=== PATIENT | male | born 1955 | race Caucasian/White ===

== ENCOUNTER 2020-08-13 14:36 | Emergency (ER) | payer MEDICARE, SELFPAY ==
[2020-08-13 14:38] VITALS: BP 133/89; PULSE 104; RESP 15; TEMP 36.5; O2SAT 96; BMI 23.4
--- NOTE | 2020-08-13 14:48 | CT_ITS ---
STUDY: CT BRAIN WITHOUT CONTRAST REASON FOR EXAM: Male, 65 years old. Head trauma and pain RADIATION DOSAGE (If Supplied By Facility): CTDIvol = ( 44.99 ) mGy, DLP = ( 846.73 ) mGycm TECHNIQUE: Transaxial CT imaging of the brain was performed without administration of intravenous contrast material. Individualized dose optimization techniques were used for this CT. COMPARISON: No relevant priors. FINDINGS: Normal soft tissue structures. Normal calvarium. Normal size ventricles and extra-axial spaces for the patient''s age. Nonspecific foci of low-attenuation periventricular and subcortical white matter likely related with chronic small vessel disease. There is no intracranial hemorrhage. There are no findings of an acute ischemic infarction. Normal visualized paranasal sinuses. CT/Brain/Head without Contrast IMPRESSION: No acute intracranial hemorrhage, mass effect or acute large territory infarcts. Electronically Signed: Malick Arriaga MD at 15:39 EST Tel , Service support ,
--- NOTE | 2020-08-13 14:48 | CT_ITS ---
STUDY: CT FACIAL BONES WITHOUT CONTRAST REASON FOR EXAM: Male, 65 years old. FALL HITTING LEFT EYE -- NECK and amp; JAW PAIN RADIATION DOSAGE (If Supplied By Facility): CTDIvol = ( 29.38 ) mGy, DLP = ( 569.49 ) mGycm TECHNIQUE: The patient was scanned in a multi detector CT scanner. Sagittal and coronal images were reconstructed. Individualized dose optimization techniques were used for this CT. COMPARISON: None. FINDINGS: Mandible is intact. Temporal mandible joints appear intact. The zygomas are intact. Fracture deformity of the left medial orbital wall seen. No evidence for orbital hematoma. The globes are intact. No evidence for nasal bone fractures. Fracture deformity of the left orbital floor also seen. The inferior rectus muscle is intact. Partial opacification of the ethmoid air cells. Maxillary sinus rodriguez are intact. IMPRESSION: Left sided medial orbital wall and orbital floor blowout fractures. No evidence for orbital hematoma. No evidence for globe injury. Electronically Signed: Malick Arriaga MD at 15:48 EST Tel , Service support , CT/Sinus/Facial Bone
--- NOTE | 2020-08-13 14:48 | CT_ITS ---
STUDY: CT CERVICAL SPINE WITHOUT CONTRAST REASON FOR EXAM: Male, 65 years old. FALL HITTING LEFT EYE -- NECK and amp; JAW PAIN RADIATION DOSAGE (If Supplied By Facility): CTDIvol = ( 18.57 ) mGy, DLP = ( 327.99 ) mGycm TECHNIQUE: High resolution transaxial imaging was performed without contrast material. Sagittal and coronal images were reconstructed. Individualized dose optimization techniques were used for this CT. COMPARISON: None FINDINGS: Straightening of normal cervical lordotic curvature. Precervical junction appears unremarkable. The facets appear aligned. Spinous processes are intact. Uncovertebral joint and facet joint degenerative changes with multilevel neural foraminal narrowing. Disc space narrowing at C4-C5 and C5-C6 and C6-C7 levels with endplate degenerative changes and vacuum phenomena. Anterior and posterior osteophytic spurring. C1 arch is intact. Occipital condyles are within normal limits. Central canal stenosis at C5-C6 level with disc osteophyte IMPRESSION: No evidence for acute cervical spine fractures. Electronically Signed: Malick Arriaga MD at 15:46 EST Tel , Service support , CT/Spine Cervical without Contras
--- NOTE | 2020-08-13 14:49 | ED.VIS.GEN ---
History of Present Illness Chief Complaint: Fall Informant: Patient Onset: Today Current Severity: Mild Maximum Severity: Mild Narrative: Patient presents after a fall at home. He was shoveling his driveway of snow when he slipped and fell. He has a laceration just above the left eye. He states he does have neck pain and some jaw pain. He states his daughter thought he was answering questions slightly slower than normal. Patient denies loss of consciousness. No vomiting or vision change. He is not currently on an anticoagulant. His last tetanus shot was less than 5 years ago. Past Medical History - Allergies and Home Meds Allergies/Adverse Reactions: Allergies No Known Allergies Allergy (Verified 08/13/20 14:40) Lives: Spouse/ Significant Other Smoking Status: Never smoker Review of Systems General: Denies: Chills, Fever Eyes: Denies: Visual changes - bilaterally ENT: Reports: - - Jaw pain. Denies: Bilateral ear pain Cardiovascular: Denies: Chest pain Respiratory: Denies: Dyspnea, Cough Gastrointestinal: Denies: Abdominal pain, Nausea, Vomiting, Diarrhea Musculoskeletal: Reports: Neck pain Skin: Reports: Wounds Neurological: Reports: Headache. Denies: Weakness, Numbness Hematologic: Denies: Easy bruising, Easy bleeding Allergy: Denies: Uticaria Physical Exam Vital Signs/Narrative: Vital Signs Temp Pulse Resp BP Pulse Ox 08/13/20 14:38 97.7 F L 104 H 15 133/89 H 96 Inital Vital Signs reviewed: Yes General: Well nourished, Well developed Head: Normocephalic, - - 2 cm laceration to the lateral portion of the left eyebrow. Bleeding well controlled. Eyes: Perrl, EOMI ENT: Moist mucous membranes Neck: Supple Cardiovascular: Regular rate, Regular rhythm Respiratory: No distress, CTA bilaterally Abdomen: Soft, Nontender, Normal bowel sounds Extremities: Nontender Skin: - - Eyebrow laceration as above. Neurological: Alert, Oriented x3, Normal Strength, Normal Sensation Psychological: Normal affect Diagnostic/Tx/Re-eval Impressions Brain CT 08/13/20 14:48 IMPRESSION: No acute intracranial hemorrhage, mass effect or acute large territory infarcts. Electronically Signed: Malick Arriaga MD at 15:39 EST Tel , Service support , Cervical Spine CT 08/13/20 14:48 IMPRESSION: No evidence for acute cervical spine fractures. Facial/Sinus 08/13/20 14:48 IMPRESSION: Left sided medial orbital wall and orbital floor blowout fractures. No evidence for orbital hematoma. No evidence for globe injury. 08/13/20 14:48 CT Cervical [Spine Cervical without Contras] [CT] Stat CT Facial [Sinus/Facial Bone] [CT] Stat CT Head [Brain/Head without Contrast] [CT] Stat - Medical Decision Making Patient reports his tetanus shot is up-to-date. CT scans are obtained. CT facial bones is read as orbital fracture, however when I presented this to the patient he states that he had a bad fracture to that area 1972. He has no focal pain to this area and it is all felt to be old based on his exam. 2 cc 1% lidocaine are used locally around the laceration. Wound is cleansed and sutured with 6 simple interrupted sutures with 5-0 nylon. Patient tolerated procedure well. Patient will follow up with his PCP or here in 5 days for suture removal. ED Disposition - Plan for ED Patient: Disposition: Home or Assisted Living Diagnosis: Facial laceration Instructions: ED Laceration, Face: Stitches or Tape Referrals: Jarrett Cao MD [STAFF PHYSICIAN] - 5 Days for suture removal
[2020-08-13] MEDS: Lidocaine 1% (20 ml mdv) 20 ML Vial INFILT (16:20)
== END 2020-08-13 16:21 | disposition home or self-care (01) ==
PROVIDERS: Emergency Provider Emergency Medicine
DX: S01.112A Laceration without foreign body of left eyelid and periocular area, initial encounter (principal); W26.9XXA Contact with unspecified sharp object(s), initial encounter; Y93.89 Activity, other specified; Y92.008 Other place in unspecified non-institutional (private) residence as the place of occurrence of the external cause; Y99.8 Other external cause status
CPT/HCPCS: 12011; 70450; 70486; 72125; 99283

== ENCOUNTER 2022-11-24 03:42 | Emergency (ER) | payer MEDICARE, SELFPAY ==
[2022-11-24 03:43] VITALS: BP 160/97; PULSE 87; RESP 16; TEMP 36.4; O2SAT 98; BMI 23.9
--- NOTE | 2022-11-24 03:51 | EKG12_ITS ---
Test Reason : CP Blood Pressure : / mmHG Vent. Rate : 082 BPM Atrial Rate : 082 BPM P-R Int : 152 ms QRS Dur : 094 ms QT Int : 356 ms P-R-T Axes : 061 064 056 degrees QTc Int : 415 ms Normal sinus rhythm Normal ECG Confirmed by EDE BILLINGSLEY, LUCAS ([id number]), legal editor LEX PELLETIER ([id number]) on 11/26/2022 10:32:09 AM Referred By: KELLY Confirmed By:LUCAS MERA MD
--- NOTE | 2022-11-24 03:51 | RAD_ITS ---
INDICATION: chest pain EXAMINATION/TECHNIQUE: X-RAY - XR Chest 1 View COMPARISON: None. Findings: Single frontal view of the chest. LUNG PARENCHYMA: No acute focal airspace disease or mass lesion. PLEURA: No pleural effusion. No pneumothorax. HEART/GREAT VESSELS: Cardiomediastinal silhouette is unremarkable. BONES: Osseous structures are unremarkable for age. RAD/Chest 1 View (Portable) IMPRESSION: Chest with no acute disease. Electronically Signed: Bernard Moran MD at 4:54 EDT ,
[2022-11-24 03:58] LABS: Absolute Lymphocyte Count 3.91 X10^3/uL (0.83-4.51); Absolute Neutrophil Count 3.2 X10^3/uL (2.0-7.7); Basophil# 0.06 X10^3/uL; Basophil% 0.7 % (0-1); Eosinophil# 0.27 X10^3/uL; Eosinophils% 3.3 % (0-5); Hematocrit 42.9 % (40-54); Lymphocyte # 3.91 X10^3/ul (0.83-4.51); Lymphocyte % 47.5 % (19-41); Mean Corp Hgb Conc 32.6 g/dL (32-36); Mean Corpuscular Hgb 29.8 pg (27.0-32.0); Mean Corpuscular Volume 91.3 fL (80-94); Mean Platelet Vol. 9.9 fl (6.2-12.0); Monocyte# 0.79 X10^3/uL; Monocyte% 9.6 % (0-10); NRBC Flagged by Analyzer 0 % (0-5); Neutrophil # 3.18 X10^3/uL (2.7-7.7); Neutrophil % 38.7 % (47-70); Platelet Count 320 K/mm3 (150-450); RBC Distribution Width CV 13.2 % (11.6-14.6); RBC Distribution Width SD 44.9 fl (35.1-43.9); White Blood Count 8.2 K/mm3 (4.4-11.0)
--- NOTE | 2022-11-24 04:04 | EDS_ITS ---
HPI History of Present Illness Chief Complaint: Chest Pain Informant: patient Onset/Context/Timing Onset: Today and Hours Activity at onset: sudden Timing: Intermittent Quality: Positive for Stabbing Location: Substernal Current Severity: Mild Maximum Severity: Mild Worsened By: Breathing; Not Worsened By Exertion, Movement of Arm, Movement of Torso, Eating, Palpation or Coughing Relieved By: Nothing Associated Symptoms: Negative for Nausea, Vomiting, Diaphoresis, Dyspnea, Cough, Fever, Lightheadedness, Acid Reflux or Palpitations Narrative Narrative: Healthy 67-year-old male with history of glaucoma. No cardiac history. States that he woke up tonight with midsternal chest discomfort that felt like something was clot in his chest or esophagus. Increased with deep breathing. No history of cardiac disease nor any DVT or PE. No recent travel surgery or immobilization. No leg pain or swelling. No hemoptysis. No recent exertional chest pain or shortness of breath. Prior Similar Symptoms: No Recent Illness/Hospitalization: No CVD Risk Factors: Negative for Hypertension, Diabetes, Hypercholesterolemia, Family History 1' </=55 or Smoking PE Risk Factors: Negative for Recent Travel/Surgery, Recent Immobilization, Prior DVT or PE, Cancer, OCP + Smoking + >/=35 or - TAD Risk Factors: Negative for Marfan's Syndrome [facility]SH [facility] Medical History Glaucoma Home Medications NK 11/24/22 [History Last Taken Unknown] Allergy/AdvReac Type Severity Reaction Status Date / Time No Known Allergies Allergy Verified 11/24/22 03:49 Social History Smoking Status: Never smoker ROS ROS ED ROS Narrative Pleuritic chest pain tonight only. Review of Systems ROS Unobtainable: Denies due to encephalopathy Constitutional Constitutional ED: Denies chills Eyes Eyes: Reports none ENT ENT ED: Denies ear pain Cardiovascular Cardiovascular: Reports as per HPI and chest pain; Denies palpitations or racing heartbeat Respiratory/Chest Respiratory/Chest: Denies cough, dyspnea or dyspnea on exertion Gastrointestinal Gastrointestinal: Denies abdominal pain or constipation Genitourinary Genitourinary ED: Denies dysuria or hematuria Musculoskeletal Musculoskeletal: Denies arthralgias Integumentary Denies abscess Neurologic Neurologic: Denies headache(s) Psychiatric Psychiatric: Denies anxiety Endocrine Endocrinology: Denies cold intolerance Hematologic/Lymphatic Hematologic/Lymphatic: Denies easy bleeding or easy bruising Allergic/Immunologic Allergic/Immunologic ED: Denies mouth swelling or tongue swelling EXAM Physical Exam Narrative Exam Narrative: 59-year-old male vital signs stable afebrile. Pulse ox 90% on room air no signs hypoxia. HEENT exam unremarkable. Neck nontender no JVD. Lungs clear to auscultation bilaterally. Heart regular rate and rhythm no murmur rate about 85. Chest wall completely nontender. No signs of trauma. No subcu air. Abdomen soft nontender normal bowel sounds no peritoneal signs. Moving all 4 extremities. Calves are nontender without edema or cords. Equal symmetrical radial pulses. Back nontender. Neurologic exam normal. Awake and alert. Const Vital Signs: 11/24/22 03:43 11/24/22 03:47 11/24/22 03:51 Temperature 97.5 F L Temperature Source Temporal Pulse Rate 87 Respiratory Rate 16 Respiratory Effort Normal Non-Labored Respiratory Pattern Normal Blood Pressure 160/97 H Blood Pressure Mean 118 Pulse Ox 98 Oxygen Delivery Method Room Air Room Air 11/24/22 04:42 11/24/22 05:00 11/24/22 06:00 Temperature Temperature Source Pulse Rate 66 60 62 Respiratory Rate 17 18 17 Respiratory Effort Respiratory Pattern Blood Pressure 130/62 H 145/61 H 129/58 H Blood Pressure Mean 84 89 81 Pulse Ox 98 97 98 Oxygen Delivery Method Room Air Room Air Room Air Positive well nourished and well developed; Negative for obese, cachectic, contractures or unkempt General Appearance ED: well developed and NAD; Negative for unkempt, cachectic, contractures or pallor Nutritional Appearance: Negative for cachectic or obese HEENT Reports moist mucous membranes normocephalic and atraumatic; Negative for trauma or tenderness Eyes PERRL and EOMs intact bilaterally General Eye ED: Negative for pale conjunctiva or scleral icterus Neck no lymphadenopathy, supple and no JVD General: Negative for tenderness Chest Wall inspection of chest normal and palpation of chest normal Chest: Negative for tenderness Resp normal respiratory effort and clear to auscultation bilaterally Effort and Inspection: Negative for respiratory distress Auscultation: Negative for rales, rhonchi or wheezes Cardio regular rate, regular rhythm, S1 normal heart sound, S2 normal heart sound and no murmurs Rate: Negative for bradycardia or tachycardic Rhythm: Negative for abnormal rhythm Peripheral Pulses: pulses 2+ throughout GI normal to inspection, nondistended, normoactive bowel sounds, soft to palpation, non-tender, non-distended and no masses Auscultation: Negative for hyperactive bowel sounds Palpation: Negative for splenomegaly Back/Spine no CVA tenderness and no thoracic nor lumbar tenderness General Back: Negative for CVA tenderness Cervical Spine: Negative for cervical spine tenderness Extremity normal to inspection General Extremety ED: Negative for edema, pulses abnormal or tenderness General Extremity: Negative for edema or pulses abnormal Neuro oriented x3 and CN's II-XII intact bilaterally Sensorium / Orientation: awake, alert, oriented to person, oriented to place and oriented to time; Negative for confused, lethargic or stuporous Motor Exam: strength 5/5 throughout Psych mental status grossly normal Appearance: Negative for unkempt Attitude: No agitated Mood & Affect: Negative for depressed, anxious or tearful Skin no rashes or lesions noted and no wounds General Skin Exam: Negative for jaundice or pallor Rashes: No rashes noted Trauma: Negative for abrasion or laceration Heart Score History: Slightly/Non-Suspicious ECG: Normal Age: >/= 65 years Risk Factors: No Risk Factors Troponin: </= Normal Limit Score: 2 MDM MDM MDM Narrative Medical decision making narrative: 67-year-old male with atypical pleuritic chest pain does not sound cardiac. Is not exertional. He is not short of breath. He is never had a DVT or PE. No physical findings of DVT. He has no risk factors he is in no travel surgery immobilization. He had a recent URI a week ago this could be pleurisy. Could be pericarditis I do not hear friction rub nor does EKG shows signs of pericarditis. Will undergo cardiac and PE work-up. It does not sound GI and it does not change with swallowing or eating. Repeat exam patient is doing well at 4:56 AM. I asked discussed with him ordering a CTA of his chest due to his pleuritic pain and elevated D-dimer. Repeat exam patient doing well at 6:27 AM. Chest pain resolved. We went over all his test results. Both troponins were normal and 4. CTA was negative. Will be discharged, chest pain uncertain etiology. Follow-up with primary care physician. History & Record Review Discussion w/independent historian: Patient Additional record(s) reviewed:: Prior inpatient record, Prior outpatient record, Prior ED visit and Prior labs Lab Data Attestation: I reviewed the patient's lab results. Lab results narrative: CBC normal. White count 8. H&H 14 and 42. Platelets 320. Chemistries unremarkable gap of 3 normal BUN and creatinine. Glucose 108. Troponin 4. D-dimer is slightly elevated 0.85. Even corrected for age is elevated. A CTA of the chest to be obtained. Showed no PE or acute cause of his chest discomfort. Second troponin was normal also and was 4. Labs: Laboratory Results - last 24 hr 11/24/22 11/24/22 11/24/22 03:45 03:45 03:45 WBC 8.2 RBC 4.70 Hgb 14.0 Hct 42.9 MCV 91.3 MCH 29.8 MCHC 32.6 RDW Std Deviation 44.9 H RDW Coeff of Shant 13.2 Plt Count 320 MPV 9.9 Immature Gran % (Auto) 0.200 Neut % (Auto) 38.7 L Lymph % (Auto) 47.5 H Ingham % (Auto) 9.6 Eos % (Auto) 3.3 Baso % (Auto) 0.7 Absolute Neuts (auto) 3.2 Absolute Lymphs (auto) 3.91 Nucleated RBC % 0 D-Dimer Quant (PE/DVT) 0.85 H* Sodium 142 Potassium 4.0 Chloride 111 H Carbon Dioxide 28.0 Anion Gap 3 L BUN 17 Creatinine 1.07 Estim Creat Clear Calc 63.93 Est GFR (MDRD) Af Amer 88 Est GFR (MDRD) Non-Af 73 BUN/Creatinine Ratio 15.9 Glucose 108 H Calcium 8.8 Troponin I High Sens 4 11/24/22 06:00 WBC RBC Hgb Hct MCV MCH MCHC RDW Std Deviation RDW Coeff of Shant Plt Count MPV Immature Gran % (Auto) Neut % (Auto) Lymph % (Auto) Ingham % (Auto) Eos % (Auto) Baso % (Auto) Absolute Neuts (auto) Absolute Lymphs (auto) Nucleated RBC % D-Dimer Quant (PE/DVT) Sodium Potassium Chloride Carbon Dioxide Anion Gap BUN Creatinine Estim Creat Clear Calc Est GFR (MDRD) Af Amer Est GFR (MDRD) Non-Af BUN/Creatinine Ratio Glucose Calcium Troponin I High Sens 4 Radiography Chest X-Ray - ED: 1 View, Read by ED Physician, Heart, Lungs, Mediastinum, Bony Structures, No Acute Disease and Chronic Changes Diagnostic Testing: Clinical Impression(s) from Imaging Studies Chest X-Ray 11/24/22 03:51 IMPRESSION: Chest with no acute disease. Electronically Signed: Bernard Moran MD at 4:54 EDT , Chest CTA 11/24/22 05:11 IMPRESSION: No pulmonary embolus or acute aortic abnormality. No acute abnormality of the chest identified. Electronically Signed: Bernard Moran MD at 6:23 EDT , Chest x-ray, portable, single view, interpreted by myself shows no acute abnormality. Normal cardiac silhouette mediastinum. No infiltrates but to agrees. Rhythm Strip Rhythm Strip: Sinus Rhythm Rate: 82 Ectopy: None EKG Initial EKG: Attestation: I personally reviewed and interpreted this EKG as follows: Interpretation: Sinus Rhythm and No Acute Injury Pattern Comments: Normal sinus rhythm rate 82 no acute signs of NE or ischemia. No [id number]. Discharge Plan Triage Chief Complaint: Chest Pain ED Provider: Sumeet Bernal Dx/Rx/DC Orders Clinical Impression: Chest pain Instructions: ED Chest Pain, Uncertain Cause Prescriptions: No Action NK Primary Care Provider: Care Physician,No Primary Referrals: Vivian Hairston MD [Med Staff - C Programmer] - As soon as possible Care Physician,No Primary [Primary Care Provider] - Activity Restrictions/Additional Instructions: Chest pain of uncertain cause. Your exam is normal. Your labs CAT scan, chest x-ray and EKG were unremarkable I do not have a specific cause for your chest discomfort. There is no blood clot. You have not had a heart attack. This does not sound cardiac. Follow-up with a primary care physician return if you are feeling worse. Disposition Disposition: Home, Self Care
[2022-11-24 04:18] LABS: Anion Gap 3 (5-15); BUN 17 mg/dL (7-18); BUN/Creat Ratio 15.9 RATIO (10-20); Calcium,Total 8.8 mg/dL (8.5-10.1); Chloride 111 mmol/L (98-107); Creatinine, Serum 1.07 mg/dL (0.70-1.30); EST Glomerular Filtration Rate 73 mL/min (>60); Est Glom Filt Rate - Afr Amer 88 mL/min (>60); Estimated Creatinine Clearance 63.93 ml/min; Glucose 108 mg/dL (74-106); Sodium Level 142 mmol/L (136-145); Troponin-I HS (w/2H Reflex) 4 pg/mL (3.0-78.0)
[2022-11-24 04:34] LABS: D-Dimer Quantitative (DVT/PE) 0.85 FEU/ug/m (0.27-0.49)
[2022-11-24 04:42] VITALS: BP 130/62; PULSE 66; RESP 17; O2SAT 98
[2022-11-24 05:00] VITALS: BP 145/61; PULSE 60; RESP 18; O2SAT 97
--- NOTE | 2022-11-24 05:11 | CT_ITS ---
INDICATION: pleuritic cp with elevated d-dimer EXAMINATION: CT CHEST WITH CONTRAST - CTA Chest WO/W Contrast Injection A radiation dose optimization technique was used for this scan. COMPARISON: Chest radiograph same day. FINDINGS: Contrast enhanced serial CTA axial images through the chest with coronal and sagittal reformatted series. Additional dedicated coronal and sagittal MIP reformatted series provided as well. IV Contrast dosage and agent: 99 cc [id number] IV. MEDIASTINUM: No acute thoracic aortic abnormality. No pulmonary artery filling defects. Mediastinum is otherwise unremarkable. LUNG PARENCHYMA: No acute pulmonary parenchymal abnormality. PLEURA: No pleural effusion. No pneumothorax. BONES: Osseous structures are unremarkable for age. UPPER ABDOMEN: Tiny hypoattenuating hepatic lesions, too small to characterize further. CT/CTA Chest W/WO Contrast IMPRESSION: No pulmonary embolus or acute aortic abnormality. No acute abnormality of the chest identified. Electronically Signed: Bernard Moran MD at 6:23 EDT ,
[2022-11-24 05:55] LABS: Reflex Troponin-HS? (from REC) Y
[2022-11-24 06:00] VITALS: BP 129/58; PULSE 62; RESP 17; O2SAT 98
[2022-11-24 06:25] LABS: Troponin-I HS 4 pg/mL (3.0-78.0)
== END 2022-11-24 07:02 | disposition home or self-care (01) ==
PROVIDERS: Emergency Provider Emergency Medicine; Visit Provider Emergency Medicine
DX: R07.89 Other chest pain (principal)
CPT/HCPCS: 71045; 71275; 80048; 84484; 85025; 85379; 93005; 99283; Q9967; A4216

== ENCOUNTER → 2023-07-29 | Outpatient (CLI) | payer MEDICARE, SELFPAY ==
--- OUTSIDE RECORDS SUMMARY | 2023-07-29 19:54 | XMS RPT_ITS ---
Comprehensive CCD (C-CDA v2.1) Created on: July 29, 2023 Current Outpatient Medications Medication Sig tafluprost, PF, (ZIOPTAN) 0.0015 % ophthalmic solution dropperette Use 1 Drop in both eyes daily at bedtime. No current facility-administered medications for this visit. ALLERGIES: Patient has no known allergies. PERSONAL HISTORY: SOCIAL HISTORY Social History Tobacco Use Smoking status: Never Smokeless tobacco: Never Vaping Use Vaping Use: Never used Substance Use Topics Alcohol use: Yes Alcohol/week: 5.0 standard drinks of alcohol Types: 5 Cans of beer per week Drug use: Never FAMILY HISTORY: FAMILY HISTORY FAMILY HISTORY Problem Relation Age of Onset Diabetes Mother Heart Attack Mother Liver Cancer Father Alcohol abuse Father Skin Cancer Sister Kidney stones Brother REVIEW OF SYMPTOMS: The review of systems data was entered by the nurse and reviewed by tx Nursing Notes: Isadora Sanches RN 03/25/2023 8:30 AM Signed REVIEW OF SYSTEMS: General: The patient denies fatigue, denies weight loss, denies weight gain, denies feeling hot, and denies feelings of cold. Eyes: The patient NOTES glaucoma, NOTES eye injury/surgery, does not wear glasses or contacts. Ear/Nose/Throat: The patient denies allergies, denies hayfever, denies ear infections, and denies bloody noses. Cardiovascular: The patient NOTES chest pain, denies heart disease, denies high blood pressure,denies cardiac stent, denies prior heart attack, denies irregular heart beat, denies high cholesterol, denies poor circulation, denies heart failure, other cardiac issues, denies claudication, denies cold feet, denies peripheral arterial stent. Respiratory: The patient denies tuberculosis, denies pneumonia, denies frequent cough, denies pulmonary embolism, denies shortness of breath, and denies coughing up blood. Gastrointestinal: The patient denies difficulty swallowing, denies acid reflux, denies ulcers, denies vomiting, denies jaundice/hepatitis, denies gallbladder problems, denies black or tarry stools, denies hemorrhoids, denies bleeding from rectum, denies diverticulitis, denies constipation, denies diarrhea, denies loss of stool control, and denies hernias. Kidney/Bladder: The patient denies kidney stones, denies urine infections, and denies bloody urine. Skin: The patient denies a history of skin cancer, denies bleeding/changing moles, and denies a history of skin rash. Neurologic: The patient denies a history of epilepsy/convulsions, denies headaches, denies head/spinal injuries, and denies stroke/TIA. Psychiatric: The patient denies psychiatric medications, denies depression, and denies voices, denies substance abuse. Endocrine: The patient denies thyroid disorders, denies diabetes, and denies hormonal problems. Hematologic: The patient denies a history of bruising, denies bleeding, and denies anemia, denies blood clots. Infections: The patient denies a history of measles and mumps, denies rheumatic fever, and denies sexually transmitted diseases. Musculoskeletal: The patient denies back pain/injury, denies back problems, denies sciatica, denies knee/foot trouble, denies arthritis, or denies gout. When was patient's last Mammogram screening? N/A Last Colonoscopy: 2012 Isadora Sanches RN PHYSICAL EXAMINATION: General: The patient is 68 year old male, well nourished, well hydrated in no acute distress. The patient is oriented to time, place, and person. VITALS: Blood pressure 122/64, pulse 70, temperature 36.5 C (97.7 F), height 172.7 cm (5' 8 ), weight 69.6 kg (153 lb 6.4 oz), SpO2 99 %. Body mass index is 23.32 kg/m . HEENT: Normal cephalic, ataumatic, pupils are equally round, sclera are anicteric, mucous membranes are moist, oropharynx is clear. Neck has no masses, asymmetry or lymphadenopathy. Respiratory: Clear to auscultation and percussion. Normal respiratory excursion and pattern. Cardiac: Examination is regular rate and rhythm. Normal S1/S2 Abdominal exam: Soft, nontender, with no palpable masses. No hepatosplenomegaly. No palpable hernias. Extremities: no clubbing, cyanosis or edema. No adenopathy. LABORATORY VALUES: As Noted RADIOLOGIC STUDIES: As Noted Assessment IMPRESSION: history of colon polyps, encounter for surveillance colonoscopy PLAN: I have reviewed my findings with the surgeon. Will plan for lower endoscopy. We discussed the risks and benefits of the planned endoscopy. I have informed the patient that complications can occur including failure to complete the endoscopy and perforation. The patient had the opportunity to ask questions concerning the planned endoscopy. My staff has also explained the procedure to the patient in understandable terms and has given the patient printed material concerning the procedure. The patient freely consents to surgery. I plan to use Miralax bowel preparation Patient to complete stress test and have this reviewed by ordering provider prior to endoscopy Patient verbalized understanding of all above and agreed with the plan. Diagnoses: (Z12.11) Encounter for screening for malignant neoplasm of colon (primary encounter diagnosis) (Z86.010) History of colon polyps Consultation requested by Delma Brumfield CNP for an opinion regarding surveillance colonoscopy. My final recommendations will be communicated back to the requesting physician by way of shared Medical record or letter to requesting physician via US mail. Joceline Corbin PA-C UPDATED HISTORY AND PHYSICAL EXAMINATION SERVICE DATE: 05/22/2023 SERVICE TIME: 9:17 AM PHYSICAL EXAM MUST BE COMPLETED ON ADMISSION The History and Physical (completed in the past 30 days) has been reviewed and the patient has been examined. The contents accurately reflect the patient's condition with the following additions or revisions since the H&P was completed. Examination indicates no changes. This H&P can be found in the attached. SIGNATURE: Davon Morgan III, MD PATIENT NAME: Lexi Adhikari DATE: May 22, 2023 TIME: 9:16 AM documented in this encounter [facility] 05-20-2023 Note HNO ID: [id number] Author: Jhon Pereira Service: ? Author Type: ? Type: Progress Notes Filed: 05/26/2023 5:04 AM Note Text: May 20, 2023 An order has been received for PAP titration study from Delma North APRN.arpita VARGHESE. [facility] Staff. Visit prep complete. Comments :No The sleep study is scheduled for 05/25. Insurance: Payor: [facility] MEDICARE / Plan: [facility] MEDICARE HMO / Product Type: HMO / Payer/Plan Subscr Sex Relation Sub. Ins. ID Effective Group Num 1. [facility] AARP MEDI* LEXI ADHIKARI 1955 Male Self [id number] 07/14/22 [address] [address] Jhon Pereira [facility] 04-21-2023 Note HNO ID: [id number] Author: Parul Whitley RT(R) Service: Nuclear Medicine Author Type: Technologist Type: Progress Notes Filed: 04/21/2023 1:35 PM Note Text: RADIOLOGY SERVICE PROGRESS NOTE SERVICE DATE: 04/21/2023 SERVICE TIME: 07:27 AM PATIENT IDENTITY VERIFICATION COMPLETED USING TWO (2) STANDARD IDENTIFIERS: Name and Date of confirmed by patient verbally FALL SCREENING: Has the patient had 2 falls in the last year or 1 fall with injury or currently using an Ambulatory Assistive Device (Walker, Cane, Wheelchair, Crutches, etc.)? No PATIENT GENDER DATA: .male ALLERGIES: Reviewed and unchanged MEDICATIONS REVIEWED: No PATIENT RELEVANT IMPLANT DATA REVIEWED: Not Applicable CREATININE: Creatinine Date Value Ref Range Status 03/18/2023 1.12 0.73 - 1.22 mg/dL Final Estimated Glomerular Filtration Rate Date Value Ref Range Status 03/18/2023 71 >=60 mL/min/1.73m? Final Comment: Estimated Glomerular Filtration Rate (eGFR) is calculated using the 2020 CKD-EPI creatinine equation. This equation utilizes serum creatinine, sex, and age as parameters. The creatinine assay has traceable calibration to isotope dilution-mass spectrometry. Refer to KDIGO guidelines for clinical interpretation. In patients with unstable renal function, e.g. those with acute kidney injury, the eGFR may not accurately reflect actual GFR. P.O.C.T. RESULTS: N/A April 21, [address] PERFORMED: No IV SITE: Ambulatory: A peripheral IV was started in the Right hand with a Angio cath: 24 gauge. POST EXAM PIV STATUS: Discontinued PROCEDURE TYPE: NM Stress: 8.4 mCi [id number] was administered IV for Rest Imaging at 07:39 by Parul Whitley. 26.4 mCi [id number] was administered IV for Stress Imaging at 09:05 by Parul Whitley. ADMINISTRATION TIME: PATIENT DISCHARGED TO: Ambulatory patient, left [place] department area. A Diagnostic radioactive procedure has taken place, with no further precautions necessary other than routine body substance precautions. More information regarding radiation safety can be found using this link: [email or web address] [email or web address] SIGNATURE: RT Eliza(R) PATIENT NAME: Lexi Adhikari DATE: April 21, 2023 TIME: 10:40 AM PAGER/CONTACT #: [facility] 04-21-2023 History of Presen t illness Narrative RADIOLOGY SERVICE PROGRESS NOTE SERVICE DATE: 04/21/2023 SERVICE TIME: 07:27 AM PATIENT IDENTITY VERIFICATION COMPLETED USING TWO (2) STANDARD IDENTIFIERS: Name and Date of confirmed by patient verbally FALL SCREENING: Has the patient had 2 falls in the last year or 1 fall with injury or currently using an Ambulatory Assistive Device (Walker, Cane, Wheelchair, Crutches, etc.)? No PATIENT GENDER DATA: .male ALLERGIES: Reviewed and unchanged MEDICATIONS REVIEWED: No PATIENT RELEVANT IMPLANT DATA REVIEWED: Not Applicable CREATININE: Creatinine Date Value Ref Range Status 03/18/2023 1.12 0.73 - 1.22 mg/dL Final Estimated Glomerular Filtration Rate Date Value Ref Range Status 03/18/2023 71 >=60 mL/min/1.73m Final Comment: Estimated Glomerular Filtration Rate (eGFR) is calculated using the 2020 CKD-EPI creatinine equation. This equation utilizes serum creatinine, sex, and age as parameters. The creatinine assay has traceable calibration to isotope dilution-mass spectrometry. Refer to KDIGO guidelines for clinical interpretation. In patients with unstable renal function, e.g. those with acute kidney injury, the eGFR may not accurately reflect actual GFR. P.O.C.T. RESULTS: N/A April 21, [address] PERFORMED: No IV SITE: Ambulatory: A peripheral IV was started in the Right hand with a Angio cath: 24 gauge. POST EXAM PIV STATUS: Discontinued PROCEDURE TYPE: NM Stress: 8.4 mCi [id number] was administered IV for Rest Imaging at 07:39 by Parul Whitley. 26.4 mCi [id number]-Qlowdhq was administered IV for Stress Imaging at 09:05 by Parul Whitley. ADMINISTRATION TIME: PATIENT DISCHARGED TO: Ambulatory patient, left [place] department area. A Diagnostic radioactive procedure has taken place, with no further precautions necessary other than routine body substance precautions. More information regarding radiation safety can be found using this link: [email or web address]%20N uclear%[email or web address] df SIGNATURE: RT Eliza(Halie) PATIENT NAME: Lexi Adhikari DATE: April 21, 2023 TIME: 10:40 AM PAGER/CONTACT #: documented in this encounter [facility] 04-02-2023 Note HNO ID: [id number] Author: Vera Bolaños Service: ? Author Type: ? Type: Progress Notes Filed: 04/02/2023 4:55 PM Note Text: Sleep Study Check-In Documentation Date: April 02, 2023 Name: Lexi Adhikari Comments: HST was returned in working order with all sleep questionnaires Vera Bolaños [facility] 04-01-2023 Note HNO ID: [id number] Author: Dulce Kincaid PA-C Service: ? Author Type: Physician Travel Ticketing Reviewer Type: Progress Notes Filed: 04/03/2023 7:23 AM Note Text: NEW PATIENT ADAMA in Dermatology: Visit date not found CC: This patient is a 68 year old male. HISTORY OF PRESENT ILLNESS: CHIEF COMPLAINT #1: FBSE. Skin growth described as mole Location(s): On the: below axilla ( left side ) Duration: 7 years Description/Symptoms: Denies pain Denies itch Denies change in size Denies bleeding None reported Worsening factors: None reported Improving factors: None reported Treatment(s): Current: None reported Past: None reported CHIEF COMPLAINT #2: skin growths ( moles ) Location(s): On the: head ( forehead ) Duration: 7 years Description/Symptoms: None reported Worsening factors: None reported Improving factors: None reported Treatment(s): Current: None reported Past: None reported -Pt has no other concerns at this time. PERTINENT HISTORY/SOCIAL/MEDS/ALLERGY: -Personal history of skin cancer or atypical nevi: No -History of blistering sunburns: No -Family history of skin cancer: Yes, Melanoma (Father/Sister ) -History of organ transplant/immunosuppression: No -History of joint replacements: No -Pacemaker or defibrillator: No -Need for antibiotics before dental procedures: No SOC: Social History Tobacco Use Smoking status: Never Smokeless tobacco: Never Vaping Use Vaping Use: Never used Substance Use Topics Alcohol use: Yes Alcohol/week: 5.0 standard drinks of alcohol Types: 5 Cans of beer per week Drug use: Never MEDS: Current outpatient prescriptions: Current Outpatient Medications on File Prior to Visit Medication Sig tafluprost, PF, (ZIOPTAN) 0.0015 % ophthalmic solution dropperette Use 1 Drop in both eyes daily at bedtime. No current facility-administered medications on file prior to visit. ALLERGY: ALLERGIES No Known Allergies REVIEW OF SYSTEMS: Skin as above. Patient feels well and denies any recent fevers, chills, or nightsweats. There were no vitals taken for this visit. PHYSICAL EXAM: Patient is in NAD. Alert and oriented x 3. A skin exam performed of the scalp, face, ears, neck, chest, back, abdomen, bilateral upper extremities, bilateral lower extremities, buttocks, hands, feet, fingernails, toenails and hair, underwear left on per pt preference is significant for: -Multiple homogeneously colored uniform brown macules and papules throughout, consistent with clinically benign appearing NEVI -Multiple red/purple vascular papules throughout, consistent with ANGIOMAS -Scattered reticulated brown macules on sun exposed areas, consistent with LENTIGINES -Brown waxy stuck on appearing papule(s) throughout, consistent with SEBORRHEIC KERATOSES -Excoriated, scaly papule, consistent with INFLAMED/IRRITATED SEBORRHEIC KERATOSIS involving the left forearm, right forearm -BIOPSY: A) 1.0 x 0.6 CM brown patch with irregular borders r/o atypia -0.5 cm dark brown macule of the left upper arm regular appearing, uniform, evenly pigmented and symmetrical throughout (monitor) -Diffused scatted actinic damage of the face and scalp ASSESSMENT AND PLAN: #Inflamed Seborrheic Keratosis, Skin Pruritus -Discussed etiology of condition, natural course, management and treatment options -Recommend treatment with liquid nitrogen -Due to associated itch/discomfort, offered LN2 destruction - patient opts to proceed. Plan: -Treatment with cryosurgery -Discussed side effects including redness, swelling, crusting, and discoloration after treatment, wound care with soap/water and Vaseline. -Follow up sooner than scheduled interval if not resolved PROCEDURE: Cryosurgery of non-malignant lesion(s) Risks, benefits, alternatives and personnel required for cryosurgery reviewed with patient. Patient verbalizes understanding and wishes to proceed. Cryosurgery performed with Liquid Nitrogen via cryostat spray gun to ISK. Patient tolerated well. Wound care instructions provided, patient verbalizes understanding. LOCATION: left forearm, right forearm NUMBER TREATED: 2 #Actinic Keratosis, Actinic Damage -Discussed etiology and possibility of transformation to SCC. -Discussed treatment options and the risks and benefits of each including LN2, field treatment with 5-fluorouracil (efudex), and photodynamic therapy; patient opts for PDT. Plan: -Photodynamic therapy for -Discussed incubation time and need to avoid sun x 72 hours after treatment. -History of oral herpes simplex: No Orders: -PHOTODYNAMIC THERAPY -Aminolevulinic Acid HCl 20 % soln 1 Each Dulce Kincaid PA-C #Neoplasm of unspecified behavior of bone, soft tissue, and skin -Recommend shave biopsy today to establish and confirm diagnosis UNIVERSAL PROTOCOL / SAFETY CHECKLIST Procedure to be Performed: Shave Biopsy x 1 Sign In: A Moment of CARE was c (more content not included)... [facility] 04-01-2023 Instructions Dulce Kincaid PA-C - 04/01/2023 8:49 AM EDT Images from the original note were not included. Skin Cancer Skin cancer is treatable and preventable with early detection and regular screenings. What to look for Checking your skin means taking note of all the spots on your body, from moles to freckles to age spots. Skin cancer can develop anywhere on the skin and is one of the few cancers you can usually see on your skin. Use the ABCDEs of Melanoma as a guidance to help assess for changes and higher risk lesions A = Asymmetry, one half is unlike the other half B = Border, an irregular, scalloped or poorly defined border C = Color, is varied from one area to another; has shades of sparks, brown, or black, or is sometimes white, red, or blue D = Diameter, Melanomas are usually greater than 6 mm (size of a pencil Eraser) but can be smaller E = Evolving, A mole or skin lesion that is changing in size, shape, or color Basal cell carcinoma and squamous cell carcinoma can look similar to pimple-like lesions, raised red bumps, or may appear as red, dry, or scaly patches. Notify your provider if such an area does not heal for several weeks or starts to itch, bleed, or become painful Use SPF 30+ for sun protection with, wide brim hats, sun glasses, protective clothing, and seeking shade during the peek hours of sun 10am-4pm. Reapply sunscreen every 1-2 hours. Choose broad-spectrum sunscreens. Get Vitamin D safely through a healthy diet and vitamin supplements. The [place] [employer] recommend 1000 international unit(s) of supplemental Vitamin D for adults who practice daily sun protection. Foods rich in vitamin D include salmon, tuna, vitamin D fortified milk or orange juice, and mackerel PHOTODYNAMIC THERAPY FOR ACTINIC KERATOSES Photodynamic Therapy (PDT, Brendon Light Therapy) Photodynamic Therapy (PDT) is indicated for the treatment of minimally to moderately thick actinic keratosis of the face or scalp. Actinic keratoses (AKs) are rough-textured, dry, scaly patches on the skin that can lead to skin cancer. It is important to treat AKs because there is no way to tell when or which lesions will progress to squamous cell carcinoma (SCC), the second most common form of skin cancer. So, now's the time to manage your damage! PDT, a two-part treatment, is unique because it uses a light activated drug therapy to destroy AKs. How does it work? Levulan Kerastick Topical Solution is applied to the AKs. The solution is then absorbed by the AK cells where it is converted to a chemical that makes the cells extremely sensitive to light. When the AK cells are exposed to the BRENDON-U Blue Light Research Rn Spec, a reaction occurs which destroys the AK cells. What will happen on the day of my appointment? On the day of your appointment, a dermatology nurse will first cleanse the area to be treated. The Levulan solution will then be applied to the treatment field. Typically we treat your entire face or scalp, whichever is recommended by your referring dermatology physician. Once the solution is applied, you will wait for a prescribed amount of time, called an incubation time , in order to get the best response from the Brendon Light therapy. After the incubation time, the treatment area will be exposed to the Brendon Light. The length of the exposure time will be determined by your provider. During your treatment, you may experience tingling, itching and/or burning which is normal. There are comfort measures standing by to assist you during the treatment. Once the light therapy session is complete, you will go home with specific instructions on how to care for your skin. The after effects of PDT are very similar to a sun burn, which can range from mild to severe. Typically, the treated area has a healing time of 7-10 days, but can vary depending on the severity of reaction. What are the possible side effects? The most common side effects include scaling/crusting, hypo/hyper-pigmentation, itching, stinging, and/or burning, erythema (redness) and edema (swelling). Severe stinging and/or burning at one or more lesions being treated was reported by at least 50% of patients at some time during the treatment. Aftercare: Steps to Take at Home Avoid direct light for 48 hours (Strong sunlight, even near a window, will reactivate the medication). Exposure may result in a stinging and/or burning sensation and may cause additional erythema (redness) or edema (swelling) of the lesions. Sunscreens will not protect against photosensitivity reactions caused by visible light. Gently wash the area twice a day with Cetaphil, Neutrogena, or other mild cleansers After cleansing, use Aquaphor or Vaseline twice a day to keep the area moist and free of crust. If the skin is irritated or itchy, you can apply the topical steroid ointment prescribed by your doctor (or alternatively, over the counter 1% hydrocortisone ointment), twice daily for a few days to help decrease the redness and irritation.. Do not apply the steroid directly on top of Aquaphor, but wait at least 1 hour until the Aquaphor has soaked in. Apply cool compresses as needed during the first few days, for comfort. Starting after day 3, gently exfoliate with a soft washcloth and warm water, twice a day. Then apply either Aquaphor or Vaseline. Use a mineral-based sunscreen (chemical-free) at least SPF 30, or other titanium-dioxide type of sunscreen (chemical sunscreens may be too irritating) To address swelling and redness, you may also take [id number] oral medications: Ibuprofen 200 mg, Claritin (loratidine) 10 mg, or Benadryl (diphenhydramine) 25-50 mg nightly (may cause drowsiness). In rare cases, you may need a prescription for an oral anti-inflammatory medication. If you have any questions or concerns during the healing process, please call our office Department of Dermatology [address] [place] [address] [address] [place] [phone] SKIN CARE AFTER CRYOSURGERY Post - Operative Instructions The skin's response to cryosurgery (freezing) can be mild to more severe, depending on the depth of the freeze and the location of the area treated. You may have only mild redness and swelling with a little discomfort of significant discoloration and blistering with considerable discomfort. A burning sensation in the skin may last from several minutes to several hours after the procedure. Follow these instructions when caring for an area treated by cryosurgery: MINOR RESPONSE: The area may sting or burn for a short time after treatment. The treated area will be red in color at first then turn brown and flaky as it heals and the upper layer of skin sloughs off. Gently cleanse the area with soap and water. Pat dry and apply a thin film of: vaseline. Do this at least once a day to prevent infection. MAJOR RESPONSE: Follow instructions as stated for minor response. The area may sting and burn for several hours after treatment. To relieve throbbing and pain, elevate the treatment area. Acetaminophen (Tylenol) may be taken every 3 to 4 hours for discomfort. A blister will form in the area of freezing. It may be filled with clear fluid or blood. This response is not unusual. Do not break the blister unless it becomes uncomfortable. You may prick the blister with a sterile needle or pin to remove the fluid. Leave the skin intact. Cleanse twice a day with soap and water and apply vaseline to prevent infection and a thick scab from forming. All treated areas usually heal within 3 to 4 weeks. Please call [phone] to speak to one of the dermatology nurses if you have any questions. Department of Dermatology [address] [place] [address] CARE FOR YOUR SHAVE BIOPSY SITE Please follow these instructions for daily wound care: 1. Wash the area every day with gentle soap and water. 2. Apply a thin layer of Vaseline or Aquaphor to the wound site to keep the area slightly greasy at all time (this helps to prevent scabbing). Please do not use an old tub of ointment as this can introduce germs into your wound and cause infection. 3. Cover with a bandage and continue this daily process until the wound is healed. Do not leave a soiled or wet bandage on the wound. -Keep the area clean and dry with the bandage in place the day of surgery. -If you experience any bleeding, please apply pressure to the area for approximately 10 minutes. -You may shower, but do not soak in a bathtub, hot tub, pool, ma, etc until after the wound has healed. -DO NOT USE NEOSPORIN OR BACITRACIN as there is a fairly high incidence of allergic response to these products. -You may experience some mild discomfort, redness, swelling, and/or a clear discharge from the wound after your procedure. Severe pain, worsening swelling, and foul-smelling discharge from the site are NOT to be expected. If you have concerns about how your wounds are healing, please send your provider a Tunespeak message or call [phone] and ask for a dermatology nurse. documented in this encounter [facility] 04-01-2023 History of Presen t illness Narrative NEW PATIENT ADAMA in Dermatology: Visit date not found CC: This patient is a 68 year old male. HISTORY OF PRESENT ILLNESS: CHIEF COMPLAINT #1: FBSE. Skin growth described as mole Location(s): On the: below axilla ( left side ) Duration: 7 years Description/Symptoms: Denies pain Denies itch Denies change in size Denies bleeding None reported Worsening factors: None reported Improving factors: None reported Treatment(s): Current: None reported Past: None reported CHIEF COMPLAINT #2: skin growths ( moles ) Location(s): On the: head ( forehead ) Duration: 7 years Description/Symptoms: None reported Worsening factors: None reported Improving factors: None reported Treatment(s): Current: None reported Past: None reported -Pt has no other concerns at this time. PERTINENT HISTORY/SOCIAL/MEDS/ALLERGY: -Personal history of skin cancer or atypical nevi: No -History of blistering sunburns: No -Family history of skin cancer: Yes, Melanoma (Father/Sister ) -History of organ transplant/immunosuppression: No -History of joint replacements: No -Pacemaker or defibrillator: No -Need for antibiotics before dental procedures: No SOC: Social History Tobacco Use Smoking status: Never Smokeless tobacco: Never Vaping Use Vaping Use: Never used Substance Use Topics Alcohol use: Yes Alcohol/week: 5.0 standard drinks of alcohol Types: 5 Cans of beer per week Drug use: Never MEDS: Current outpatient prescriptions: Current Outpatient Medications on File Prior to Visit Medication Sig tafluprost, PF, (ZIOPTAN) 0.0015 % ophthalmic solution dropperette Use 1 Drop in both eyes daily at bedtime. No current facility-administered medications on file prior to visit. ALLERGY: ALLERGIES No Known Allergies REVIEW OF SYSTEMS: Skin as above. Patient feels well and denies any recent fevers, chills, or nightsweats. There were no vitals taken for this visit. PHYSICAL EXAM: Patient is in NAD. Alert and oriented x 3. A skin exam performed of the scalp, face, ears, neck, chest, back, abdomen, bilateral upper extremities, bilateral lower extremities, buttocks, hands, feet, fingernails, toenails and hair, underwear left on per pt preference is significant for: -Multiple homogeneously colored uniform brown macules and papules throughout, consistent with clinically benign appearing NEVI -Multiple red/purple vascular papules throughout, consistent with ANGIOMAS -Scattered reticulated brown macules on sun exposed areas, consistent with LENTIGINES -Brown waxy stuck on appearing papule(s) throughout, consistent with SEBORRHEIC KERATOSES -Excoriated, scaly papule, consistent with INFLAMED/IRRITATED SEBORRHEIC KERATOSIS involving the left forearm -0.5 cm dark brown macule of the left upper arm -regular appearing, uniform, evenly pigmented and symmetrical throughout (monitor) -Diffused scatted actinic damage of the face and scalp. - benign growth on forehead ASSESSMENT & PLAN: #Inflamed Seborrheic Keratosis, Skin Pruritus -Discussed etiology of condition, natural course, management and treatment options -Recommend treatment with liquid nitrogen -Due to associated itch/discomfort, offered LN2 destruction - patient opts to proceed. Plan: -Treatment with cryosurgery -Discussed side effects including redness, swelling, crusting, and discoloration after treatment, wound care with soap/water and Vaseline. -Follow up sooner than scheduled interval if not resolved PROCEDURE: Cryosurgery of non-malignant lesion(s) Risks, benefits, alternatives and personnel required for cryosurgery reviewed with patient. Patient verbalizes understanding and wishes to proceed. Cryosurgery performed with Liquid Nitrogen via cryostat spray gun to ISK. Patient tolerated well. Wound care instructions provided, patient verbalizes understanding. LOCATION: left forearm, right forearm NUMBER Treated 2 #Actinic Keratosis, Actinic Damage -Discussed etiology and possibility of transformation to SCC. -Discussed treatment options and the risks and benefits of each including LN2, field treatment with 5-fluorouracil (efudex), and photodynamic therapy; patient opts for PDT. Plan: -Photodynamic therapy for -Discussed incubation time and need to avoid sun x 72 hours after treatment. -History of oral herpes simplex: No Orders: -PHOTODYNAMIC THERAPY -Aminolevulinic Acid HCl 20 % soln 1 Each HSV Prophylaxis: Acyclovir (ZOVIRAX) 400 mg tablet - Take 1 tablet twice a day for 7 days. Start 2 days before scheduled blue light treatment Valacyclovir 1g tablet - Take 1 tablet daily for 5 days. Start 2 days before scheduled blue light treatment Dulce Kincaid PA-C #Neoplasm of unspecified behavior of bone, soft tissue, and skin -Recommend shave biopsy today to establish and confirm diagnosis UNIVERSAL PROTOCOL / SAFETY CHECKLIST Procedure to be Performed: Shave Biopsy x 1 Sign In: A Moment of CARE was completed. Personnel directly involved with the procedure wore the appropriate PPE (Personal Protective Equipment). Patient/Surrogate Stated/Verified: PATIENT VERIFIED(optional for EMERGENT procedures): Patient name, Date of , Relevant allergies, and The intended procedure Time Out Communication: Intended patient and procedure match the source documents. Consent documented and matches the intended procedure. Sign Out: SIGN OUT (optional for EMERGENT procedures): All specimen containers correctly labeled. Dulce Kincaid PA-C Photo taken: Yes Risks, benefits, alternatives and personnel required for shave biopsy reviewed with patient. Patient and provider agree as to site(s) to be biopsied. Patient verbalizes understanding and wishes to proceed. Site(s) prepped with alcohol and anesthetized with 1% lidocaine with epinephrine. Shave biopsy of lesion(s) performed to the level of the dermis/epidermis The following was sent for histologic evaluation: LESION A: R/O: atypa LOC OF LESION: mid upper back SIZE: 1.0 x0.6 CM EBL: scant Hemostasis with direct pressure, aluminium chloride, and a bandage is applied Written and verbal wound care instructions provided to patient, understanding verbalized. Dulce Kincaid PA-C #Clinically benign appearing nevi, Angioma of skin, Lentigines, and Seborrheic Keratoses -Discussed etiology, reassured, and educated -Monitor for change -Counseled the patient about the ABCDEs of nevus evaluation, pre-cancer,skin cancer surveillance with routine self skin exams. -Recommend broad spectrum SPF 30+, daily, on all sun exposed areas, reapply as directed on packaging -Advised, should any areas change in size, shape or color, bleed or become tender, the patient will contact the office for evaluation sooner than their interval appointment -Advised to follow up sooner than scheduled interval if new or worsening symptoms occur. Pt verbalizes understanding and agreement with management plan discussed. #Screening Exam for Skin Cancer and Family History of Melanoma -Recommend regular skin exams -Advised sun protection with SPF 30+, wide brim hats, sun glasses, protective clothing, and seeking shade during the peak hours of sun 10am-4pm -Counseled patient on following up sooner if patient notices new, changing, growing, or non-healing lesions Counseled pt to follow up sooner than scheduled interval if something concerning arises such as new or worsening symptoms. Patient verbalizes understanding and agrees with treatment plan as discussed. Follow up in 6 months for and PRN The documentation for this note was partially completed by Melida Lamar LPN acting as scribe for Dulce Kincaid PA-C. April 01, 2023 8:16 AM. Medical Decision Making: Problems: Low: Stable chronic illness Risk: Low: Low risk from testing/treatment Moderate: Drug management Medical Decision Making Level: 3 - Low ; Provider Attestation: I, Dulce Kincaid PA-C, personally performed the services described in this documentation. All medical record entries made by the scribe were at my direction and in my presence. I have reviewed the chart and discharge instructions (if applicable) and agree that the record reflects my personal performance and is accurate and complete. April 01, 2023 8:16 AM Dulce Kincaid PA-C, MPAS documented in this encounter [facility] 03-28-2023 Note HNO ID: [id number] Author: Aaliyah Lopez, DO Service: ? Author Type: Physician Type: Progress Notes Filed: 04/02/2023 4:55 PM Note Text: March 28, 2023 Standing PSG Orders signed in the last 90 days None Future PSG Orders signed in the last 90 days Ordered Auth. provider HOME SLEEP APNEA TEST (HSAT) [[id number]] 03/18/23 Delma Brumfield APRN.[employer] [employer] [facility] diagnoses: Snoring [R06.83] Q: Indications: A: Obstructive sleep apnea Q: STOP-BANG conditions - Select All That Apply: A: GENDER = male A2: AGE > 50 A3: SNORING that is loud or disruptive Q: Current use of supplemental oxygen during sleep period?: A: No All Prior Sleep Studies (past 365 days) Some values may be hidden. Unless noted otherwise, only the newest values recorded on each date are displayed. Sleep Studies HOME SLEEP APNEA TEST (HSAT) Future Expected: Expires: 03/17/24 BMI Readings from Last 2 Encounters: 03/25/23 : 23.32 kg/m? PAST MEDICAL HISTORY Diagnosis Date Glaucoma The medical record was reviewed to determine if the proposed sleep study conforms to the [facility] Practice Parameters for the Indications for Polysomnography and Related Procedures, or if the sleep study is indicated for other reasons. Indications for study: DAI suspected without comorbid medical or sleep disorders Sleep study to be performed: Home Sleep Apnea Test (HSAT) Special instructions: None-follow laboratory protocol Lizet Perez - Sleep Medicine Staff Note: I have read the above protocol, edited as needed, and agree to the plan. Aaliyah Schaefer John, 2:10 PM, 03/28/2023 [facility] 03-27-2023 Note HNO ID: [id number] Author: Vera Bolaños Service: ? Author Type: ? Type: Progress Notes Filed: 04/02/2023 4:55 PM Note Text: Nomad# [id number] , Date shipped out: 03/28/23 SENT FEDEX DELIVERY - FEDEX RETURN Tracking mailout: [id number] Tracking return: [id number] [facility] 03-25-2023 Note HNO ID: [id number] Author: Joceline Corbin PA-C Service: ? Author Type: Physician Travel Ticketing Reviewer Type: Progress Notes Filed: 03/30/2023 10:43 PM Note Text: HISTORY AND PHYSICAL Lexi Adhikari 1955 REFERRING PHYSICIAN: Delma Brumfield APRN.* CHIEF COMPLAINT: Consult (Colonoscopy consult. ) HPI: The patient is a 68 year old male referred for endoscopy. Lexi notes no colon complaints. Patient denies any change in bowel habits, weight changes, blood in stools, black tarry stools or abdominal pain. Denies family history of colon issues. The patient notes no upper GI complaints. Lexi has undergone prior endoscopy. Last colonoscopy 2012 at [facility], records requested. Patient reports history of colon polyps. Patient's medical history is significant for glaucoma. Of note, patient had ED visit at [facility] 11/24/22 for chest pain, records reviewed. Cardiac and PE workup was negative. Patient has had follow-up with primary care. Had stress testing ordered which has not been completed. PAST MEDICAL HISTORY Diagnosis Date Glaucoma PAST SURGICAL HISTORY Procedure Laterality Date APPENDECTOMY 1972 ARTHROTOMY W/MENISCUS REPAIR KNEE Left 2005 COLONOSCOPY 05/24/2013 adenoma, repeat in 5 years, performed in [place], [place] COLONOSCOPY 07/25/2008 adenoma, repeat in 3 years, performed in [place], [place] Current Outpatient Medications Medication Sig tafluprost, PF, (ZIOPTAN) 0.0015 % ophthalmic solution dropperette Use 1 Drop in both eyes daily at bedtime. No current facility-administered medications for this visit. ALLERGIES: Patient has no known allergies. PERSONAL HISTORY: Social History Tobacco Use Smoking status: Never Smokeless tobacco: Never Vaping Use Vaping Use: Never used Substance Use Topics Alcohol use: Yes Alcohol/week: 5.0 standard drinks of alcohol Types: 5 Cans of beer per week Drug use: Never FAMILY HISTORY: FAMILY HISTORY Problem Relation Age of Onset Diabetes Mother Heart Attack Mother Liver Cancer Father Alcohol abuse Father Skin Cancer Sister Kidney stones Brother REVIEW OF SYMPTOMS: The review of systems data was entered by the nurse and reviewed by tx Nursing Notes: Isadora Sanches RN 03/25/2023 8:30 AM Signed REVIEW OF SYSTEMS: General: The patient denies fatigue, denies weight loss, denies weight gain, denies feeling hot, and denies feelings of cold. Eyes: The patient NOTES glaucoma, NOTES eye injury/surgery, does not wear glasses or contacts. Ear/Nose/Throat: The patient denies allergies, denies hayfever, denies ear infections, and denies bloody noses. Cardiovascular: The patient NOTES chest pain, denies heart disease, denies high blood pressure,denies cardiac stent, denies prior heart attack, denies irregular heart beat, denies high cholesterol, denies poor circulation, denies heart failure, other cardiac issues, denies claudication, denies cold feet, denies peripheral arterial stent. Respiratory: The patient denies tuberculosis, denies pneumonia, denies frequent cough, denies pulmonary embolism, denies shortness of breath, and denies coughing up blood. Gastrointestinal: The patient denies difficulty swallowing, denies acid reflux, denies ulcers, denies vomiting, denies jaundice/hepatitis, denies gallbladder problems, denies black or tarry stools, denies hemorrhoids, denies bleeding from rectum, denies diverticulitis, denies constipation, denies diarrhea, denies loss of stool control, and denies hernias. Kidney/Bladder: The patient denies kidney stones, denies urine infections, and denies bloody urine. Skin: The patient denies a history of skin cancer, denies bleeding/changing moles, and denies a history of skin rash. Neurologic: The patient denies a history of epilepsy/convulsions, denies headaches, denies head/spinal injuries, and denies stroke/TIA. Psychiatric: The patient denies psychiatric medications, denies depression, and denies voices, denies substance abuse. Endocrine: The patient denies thyroid disorders, denies diabetes, and denies hormonal problems. Hematologic: The patient denies a history of bruising, denies bleeding, and denies anemia, denies blood clots. Infections: The patient denies a history of measles and mumps, denies rheumatic fever, and denies sexually transmitted diseases. Musculoskeletal: The patient denies back pain/injury, denies back problems, denies sciatica, denies knee/foot trouble, denies arthritis, or denies gout. When was patient's last Mammogram screening? N/A Last Colonoscopy: 2012 Isadora Sanches RN PHYSICAL EXAMINATION: General: The patient is 68 year old male, well nourished, well hydrated in no acute distress. The patient is oriented to time, place, and person. VITALS: Blood pressure 122/64, pulse 70, temperature 36.5 ?C (97.7 ?F), height 172.7 cm (5' 8 ), weight 69.6 kg (153 lb 6.4 oz), SpO2 99 %. Body mass (more content not included)... [facility] 03-25-2023 Nurse Note REVIEW OF SYSTEMS: General: The patient denies fatigue, denies weight loss, denies weight gain, denies feeling hot, and denies feelings of cold. Eyes: The patient NOTES glaucoma, NOTES eye injury/surgery, does not wear glasses or contacts. Ear/Nose/Throat: The patient denies allergies, denies hayfever, denies ear infections, and denies bloody noses. Cardiovascular: The patient NOTES chest pain, denies heart disease, denies high blood pressure,denies cardiac stent, denies prior heart attack, denies irregular heart beat, denies high cholesterol, denies poor circulation, denies heart failure, other cardiac issues, denies claudication, denies cold feet, denies peripheral arterial stent. Respiratory: The patient denies tuberculosis, denies pneumonia, denies frequent cough, denies pulmonary embolism, denies shortness of breath, and denies coughing up blood. Gastrointestinal: The patient denies difficulty swallowing, denies acid reflux, denies ulcers, denies vomiting, denies jaundice/hepatitis, denies gallbladder problems, denies black or tarry stools, denies hemorrhoids, denies bleeding from rectum, denies diverticulitis, denies constipation, denies diarrhea, denies loss of stool control, and denies hernias. Kidney/Bladder: The patient denies kidney stones, denies urine infections, and denies bloody urine. Skin: The patient denies a history of skin cancer, denies bleeding/changing moles, and denies a history of skin rash. Neurologic: The patient denies a history of epilepsy/convulsions, denies headaches, denies head/spinal injuries, and denies stroke/TIA. Psychiatric: The patient denies psychiatric medications, denies depression, and denies voices, denies substance abuse. Endocrine: The patient denies thyroid disorders, denies diabetes, and denies hormonal problems. Hematologic: The patient denies a history of bruising, denies bleeding, and denies anemia, denies blood clots. Infections: The patient denies a history of measles and mumps, denies rheumatic fever, and denies sexually transmitted diseases. Musculoskeletal: The patient denies back pain/injury, denies back problems, denies sciatica, denies knee/foot trouble, denies arthritis, or denies gout. When was patient's last Mammogram screening? N/A Last Colonoscopy: 2012 Isadora Sanches RN documented in this encounter [facility] 03-25-2023 History of Presen t illness Narrative HISTORY AND PHYSICAL Lexi Das Yakov 1955 REFERRING PHYSICIAN: Delma Brumfield APRN.* CHIEF COMPLAINT: Consult (Colonoscopy consult. ) HPI: The patient is a 68 year old male referred for endoscopy. Lexi notes no colon complaints. Patient denies any change in bowel habits, weight changes, blood in stools, black tarry stools or abdominal pain. Denies family history of colon issues. The patient notes no upper GI complaints. Lexi has undergone prior endoscopy. Last colonoscopy 2012 at [facility], records requested. Patient reports history of colon polyps. Patient's medical history is significant for glaucoma. Of note, patient had ED visit at [facility] 11/24/22 for chest pain, records reviewed. Cardiac and PE workup was negative. Patient has had follow-up with primary care. Had stress testing ordered which has not been completed. PAST MEDICAL HISTORY Diagnosis Date Glaucoma PAST SURGICAL HISTORY Procedure Laterality Date APPENDECTOMY 1972 ARTHROTOMY W/MENISCUS REPAIR KNEE Left 2005 COLONOSCOPY 05/24/2013 adenoma, repeat in 5 years, performed in [place], [place] COLONOSCOPY 07/25/2008 adenoma, repeat in 3 years, performed in [place], [place] Current Outpatient Medications Medication Sig tafluprost, PF, (ZIOPTAN) 0.0015 % ophthalmic solution dropperette Use 1 Drop in both eyes daily at bedtime. No current facility-administered medications for this visit. ALLERGIES: Patient has no known allergies. PERSONAL HISTORY: Social History Tobacco Use Smoking status: Never Smokeless tobacco: Never Vaping Use Vaping Use: Never used Substance Use Topics Alcohol use: Yes Alcohol/week: 5.0 standard drinks of alcohol Types: 5 Cans of beer per week Drug use: Never FAMILY HISTORY: FAMILY HISTORY Problem Relation Age of Onset Diabetes Mother Heart Attack Mother Liver Cancer Father Alcohol abuse Father Skin Cancer Sister Kidney stones Brother REVIEW OF SYMPTOMS: The review of systems data was entered by the nurse and reviewed by tx Nursing Notes: Isadora Sanches RN 03/25/2023 8:30 AM Signed REVIEW OF SYSTEMS: General: The patient denies fatigue, denies weight loss, denies weight gain, denies feeling hot, and denies feelings of cold. Eyes: The patient NOTES glaucoma, NOTES eye injury/surgery, does not wear glasses or contacts. Ear/Nose/Throat: The patient denies allergies, denies hayfever, denies ear infections, and denies bloody noses. Cardiovascular: The patient NOTES chest pain, denies heart disease, denies high blood pressure,denies cardiac stent, denies prior heart attack, denies irregular heart beat, denies high cholesterol, denies poor circulation, denies heart failure, other cardiac issues, denies claudication, denies cold feet, denies peripheral arterial stent. Respiratory: The patient denies tuberculosis, denies pneumonia, denies frequent cough, denies pulmonary embolism, denies shortness of breath, and denies coughing up blood. Gastrointestinal: The patient denies difficulty swallowing, denies acid reflux, denies ulcers, denies vomiting, denies jaundice/hepatitis, denies gallbladder problems, denies black or tarry stools, denies hemorrhoids, denies bleeding from rectum, denies diverticulitis, denies constipation, denies diarrhea, denies loss of stool control, and denies hernias. Kidney/Bladder: The patient denies kidney stones, denies urine infections, and denies bloody urine. Skin: The patient denies a history of skin cancer, denies bleeding/changing moles, and denies a history of skin rash. Neurologic: The patient denies a history of epilepsy/convulsions, denies headaches, denies head/spinal injuries, and denies stroke/TIA. Psychiatric: The patient denies psychiatric medications, denies depression, and denies voices, denies substance abuse. Endocrine: The patient denies thyroid disorders, denies diabetes, and denies hormonal problems. Hematologic: The patient denies a history of bruising, denies bleeding, and denies anemia, denies blood clots. Infections: The patient denies a history of measles and mumps, denies rheumatic fever, and denies sexually transmitted diseases. Musculoskeletal: The patient denies back pain/injury, denies back problems, denies sciatica, denies knee/foot trouble, denies arthritis, or denies gout. When was patient's last Mammogram screening? N/A Last Colonoscopy: 2012 Isadora Sanches RN PHYSICAL EXAMINATION: General: The patient is 68 year old male, well nourished, well hydrated in no acute distress. The patient is oriented to time, place, and person. VITALS: Blood pressure 122/64, pulse 70, temperature 36.5 C (97.7 F), height 172.7 cm (5' 8 ), weight 69.6 kg (153 lb 6.4 oz), SpO2 99 %. Body mass index is 23.32 kg/m . HEENT: Normal cephalic, ataumatic, pupils are equally round, sclera are anicteric, mucous membranes are moist, oropharynx is clear. Neck has no masses, asymmetry or lymphadenopathy. Respiratory: Clear to auscultation and percussion. Normal respiratory excursion and pattern. Cardiac: Examination is regular rate and rhythm. Normal S1/S2 Abdominal exam: Soft, nontender, with no palpable masses. No hepatosplenomegaly. No palpable hernias. Extremities: no clubbing, cyanosis or edema. No adenopathy. LABORATORY VALUES: As Noted RADIOLOGIC STUDIES: As Noted Assessment IMPRESSION: history of colon polyps, encounter for surveillance colonoscopy PLAN: I have reviewed my findings with the surgeon. Will plan for lower endoscopy. We discussed the risks and benefits of the planned endoscopy. I have informed the patient that complications can occur including failure to complete the endoscopy and perforation. The patient had the opportunity to ask questions concerning the planned endoscopy. My staff has also explained the procedure to the patient in understandable terms and has given the patient printed material concerning the procedure. The patient freely consents to surgery. I plan to use Miralax bowel preparation Patient to complete stress test and have this reviewed by ordering provider prior to endoscopy Patient verbalized understanding of all above and agreed with the plan. Diagnoses: (Z12.11) Encounter for screening for malignant neoplasm of colon (primary encounter diagnosis) (Z86.010) History of colon polyps Consultation requested by Delma Brumfield CNP for an opinion regarding surveillance colonoscopy. My final recommendations will be communicated back to the requesting physician by way of shared Medical record or letter to requesting physician via US mail. Joceline Corbin PA-C documented in this encounter [facility] 03-24-2023 Miscellaneous Notes Patient's last colonoscopy was in 2012 at the [facility]. He is also going to bring documentation of that to his appointment. Giovana Lane March 24, 2023 1:43 PM Called and left message for patient to call office back, looking for information on last colonoscopy and where it was completed? Trinidad Rodrigez LPN documented in this encounter [facility] 03-19-2023 Note HNO ID: [id number] Author: Yumiko Gaston Service: ? Author Type: ? Type: Progress Notes Filed: 04/02/2023 4:55 PM Note Text: March 19, 2023 An order has been received for Home Sleep Apnea Test (HSAT) from Delma North APRN.arpita VARGHESE. [facility] Staff. Visit prep complete. Comments :No The sleep study is scheduled for 04/12. Insurance: Payor: [facility] MEDICARE / Plan: [facility] MEDICARE HMO / Product Type: HMO / Payer/Plan Subscr Sex Relation Sub. Ins. ID Effective Group Num 1. [facility] LEXI BETH 1955 Male Self [id number] 07[birth year]22 [address] [address] Yumiko Gaston [facility] 03-18-2023 Note HNO ID: [id number] Author: Delma Brumfield APRN.HALIMA Service: ? Author Type: Nurse Practitioner Type: Progress Notes Filed: 03/18/2023 8:38 AM Note Text: Chief Complaint Patient presents with: Establish Care HPI Lexi Adhikari is a 68 year old male who presents here today for Above Complaints.. Patient presents to establish care. 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 Patient reports in november he had an event with chest tightness and was seen in ER. His CT, CXR, and EKG were negative at that time. Patient also reports concern about mole on his left chest. Past medical history, appointments, medications, allergies reviewed. Previous Medical History PAST MEDICAL HISTORY Diagnosis Date Glaucoma Previous Surgical History PAST SURGICAL HISTORY Procedure Laterality Date APPENDECTOMY 1973 ARTHROTOMY W/MENISCUS REPAIR KNEE 2006 Family History No family history on file. Patient Allergies ALLERGIES No Known Allergies Current Medications Current Outpatient Medications on File Prior to Visit Medication Sig latanoprost (XALATAN) 0.005 % ophthalmic solution Use 1 Drop in eyes. tafluprost, PF, 0.0015 % dpet Use in eyes. lidocaine viscous (LIDOCAINE VISCOUS) 2 % solution Gargle and spit 10-15mLs every 3-4 hours as need for throat discomfort. No current facility-administered medications on file prior to visit. Social History Social History Tobacco Use Smoking status: Never Smokeless tobacco: Never Review of Symptoms REVIEW OF SYSTEMS GENERAL: No weight loss, malaise or fevers HEENT: Eyes Positive for glaucoma NECK: Negative for lumps, goiter, pain and significant neck swelling RESPIRATORY: Negative for cough, hemoptysis, wheezing, COPD, dyspnea or shortness of breath CARDIOVASCULAR: Chest pain GI: No nausea, vomiting, or diarrhea : Positive for decreased stream takes longer to pee and nocturia >1 MUSCULOSKELETAL: Negative for joint pain or swelling, back pain or muscle pain SKIN: Positive for lesions: left chest under armpit PSYCH: sleep fragmented HEMATOLOGY/LYMPHOLOGY: Negative for prolonged bleeding, bruising easily or swollen nodes ENDOCRINE: Negative for cold or heat intolerance, polyuria, polydipsia and goiter NEURO: No history of headaches, syncope, paralysis, seizures or tremors EXAM: BP 120/74 Pulse 76 Resp 16 Wt 68.5 kg (151 lb) General Appearance: Well appearing, alert, in no acute distress, well-hydrated, well nourished.. Skin: Skin color, texture, turgor normal, no suspicious rashes or lesions, Positives: Mole(s) - abnormal: torso. Neck: Supple, no adenopathy; thyroid symmetric, normal size, no bruits. Lungs: Lungs clear to auscultation. No wheezing, rhonchi, rales.. Heart: RRR without murmur, gallop, or rubs. No ectopy. Abdomen: Normal abdominal exam, Abdomen soft, non-tender. Bowel sounds normal. No masses, organomegaly Extremities: No deformities, edema, skin discoloration, clubbing or cyanosis. Good capillary refill. . Peripheral Pulses: Normal. Neurologic: Gait normal. Reflexes normal and symmetric. Sensation grossly intact.. Health Maintenance List HEPATITIS C SCREENING Never done DTAP,TDAP,TD(1 - Tdap) Never done LIPID SCREEN Never done DIABETES SCREEN Never done COLORECTAL CANCER SCREENING Never done SHINGRIX VACCINE(1 of 2) Never done PROSTATE CANCER SCREENING DISCUSSION Never done PNEUMOCOCCAL: 65+(1 - PCV) Never done ADVANCE DIRECTIVE DISCUSSION Never done DEPRESSION ASSESSMENT Never done INFLUENZA(1) due on 03/14/2023 COVID-19 VACCINE(1) due on 03/18/2024 ASSESSMENT/PLAN: 1. Screening for prostate cancer - ICD9: V76.44, ICD10: Z12.5 (primary diagnosis) - Counseled on healthy diet and regular exercise - Discussed need for and benefit of weight loss. There is no height on file. - Colorectal cancer screening recommended - agrees to Colonoscopy - Risks/benefits of prostate cancer screening discussed. screening PSA ordered - Counseled on limiting alcohol intake to 2 drinks per day - Depression screening tool completed and reviewed with patient. Based on score and interview, patient is not at risk for depression and recommended no further intervention at this time. - Follow up for annual exam in one year - PSA/PROSTSPECAG SCRN 2. History of colon polyps - ICD9: V12.72, ICD10: Z86.010 - CONSULT TO GENERAL SURGERY 3. Medication management - ICD9: V58.69, ICD10: Z79.89 - CBC + DIFF - COMP METABOLIC PANEL 4. Encounter for lipid screening for cardiovascular disease - ICD9: V77.91, V81.2, ICD10: Z13.220, Z13.6 - LIPID PANEL, NONFASTING 5. Screening for diabetes mellitus - ICD9: V77.1, ICD10: Z13.1 - HGB A1C 6. Abnormal skin growth - ICD9: 239.2, ICD10: D49.2 - CONSULT TO DERMATOLOGY 7. Snoring - ICD9: 786.09, ICD10: R06.83 Stable - Behavioral intervention - HOME SLEEP APNEA TEST (HSAT) 8. Chest pressure - ICD9: 786.59, ICD10: R07.89 Atypi (more content not included)... [facility] 03-18-2023 History of Presen t illness Narrative Chief Complaint Patient presents with: [facility] HPI Lexi Adhikari is a 68 year old male who presents here today for Above Complaints.. Patient presents to [facility]. 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 Patient reports in november he had an event with chest tightness and was seen in ER. His CT, CXR, and EKG were negative at that time. Patient also reports concern about mole on his left chest. Past medical history, appointments, medications, allergies reviewed. Previous Medical History PAST MEDICAL HISTORY Diagnosis Date Glaucoma Previous Surgical History PAST SURGICAL HISTORY Procedure Laterality Date APPENDECTOMY 1973 ARTHROTOMY W/MENISCUS REPAIR KNEE 2006 Family History No family history on file. Patient Allergies ALLERGIES No Known Allergies Current Medications Current Outpatient Medications on File Prior to Visit Medication Sig latanoprost (XALATAN) 0.005 % ophthalmic solution Use 1 Drop in eyes. tafluprost, PF, 0.0015 % dpet Use in eyes. lidocaine viscous (LIDOCAINE VISCOUS) 2 % solution Gargle and spit 10-15mLs every 3-4 hours as need for throat discomfort. No current facility-administered medications on file prior to visit. Social History Social History Tobacco Use Smoking status: Never Smokeless tobacco: Never Review of Symptoms REVIEW OF SYSTEMS GENERAL: No weight loss, malaise or fevers HEENT: Eyes Positive for glaucoma NECK: Negative for lumps, goiter, pain and significant neck swelling RESPIRATORY: Negative for cough, hemoptysis, wheezing, COPD, dyspnea or shortness of breath CARDIOVASCULAR: Chest pain GI: No nausea, vomiting, or diarrhea : Positive for decreased stream takes longer to pee and nocturia >1 MUSCULOSKELETAL: Negative for joint pain or swelling, back pain or muscle pain SKIN: Positive for lesions: left chest under armpit PSYCH: sleep fragmented HEMATOLOGY/LYMPHOLOGY: Negative for prolonged bleeding, bruising easily or swollen nodes ENDOCRINE: Negative for cold or heat intolerance, polyuria, polydipsia and goiter NEURO: No history of headaches, syncope, paralysis, seizures or tremors EXAM: BP 120/74 Pulse 76 Resp 16 Wt 68.5 kg (151 lb) General Appearance: Well appearing, alert, in no acute distress, well-hydrated, well nourished.. Skin: Skin color, texture, turgor normal, no suspicious rashes or lesions, Positives: Mole(s) - abnormal: torso. Neck: Supple, no adenopathy; thyroid symmetric, normal size, no bruits. Lungs: Lungs clear to auscultation. No wheezing, rhonchi, rales.. Heart: RRR without murmur, gallop, or rubs. No ectopy. Abdomen: Normal abdominal exam, Abdomen soft, non-tender. Bowel sounds normal. No masses, organomegaly Extremities: No deformities, edema, skin discoloration, clubbing or cyanosis. Good capillary refill. . Peripheral Pulses: Normal. Neurologic: Gait normal. Reflexes normal and symmetric. Sensation grossly intact.. Health Maintenance List HEPATITIS C SCREENING Never done DTAP,TDAP,TD(1 - Tdap) Never done LIPID SCREEN Never done DIABETES SCREEN Never done COLORECTAL CANCER SCREENING Never done SHINGRIX VACCINE(1 of 2) Never done PROSTATE CANCER SCREENING DISCUSSION Never done PNEUMOCOCCAL: 65+(1 - PCV) Never done ADVANCE DIRECTIVE DISCUSSION Never done DEPRESSION ASSESSMENT Never done INFLUENZA(1) due on 03/14/2023 COVID-19 VACCINE(1) due on 03/18/2024 ASSESSMENT/PLAN: 1. Screening for prostate cancer - ICD9: V76.44, ICD10: Z12.5 (primary diagnosis) - Counseled on healthy diet and regular exercise - Discussed need for and benefit of weight loss. There is no height on file. - Colorectal cancer screening recommended - agrees to Colonoscopy - Risks/benefits of prostate cancer screening discussed. screening PSA ordered - Counseled on limiting alcohol intake to 2 drinks per day - Depression screening tool completed and reviewed with patient. Based on score and interview, patient is not at risk for depression and recommended no further intervention at this time. - Follow up for annual exam in one year - PSA/PROSTSPECAG SCRN 2. History of colon polyps - ICD9: V12.72, ICD10: Z86.010 - CONSULT TO GENERAL SURGERY 3. Medication management - ICD9: V58.69, ICD10: Z79.89 - CBC + DIFF - COMP METABOLIC PANEL 4. Encounter for lipid screening for cardiovascular disease - ICD9: V77.91, V81.2, ICD10: Z13.220, Z13.6 - LIPID PANEL, NONFASTING 5. Screening for diabetes mellitus - ICD9: V77.1, ICD10: Z13.1 - HGB A1C 6. Abnormal skin growth - ICD9: 239.2, ICD10: D49.2 - CONSULT TO DERMATOLOGY 7. Snoring - ICD9: 786.09, ICD10: R06.83 Stable - Behavioral intervention - HOME SLEEP APNEA TEST (HSAT) 8. Chest pressure - ICD9: 786.59, ICD10: R07.89 Atypical chest pain, symptoms are not consistent with cardiac ischemia due to nonexertional nature of symptom, pleuritic nature of pain, and localization of the pain possible etiology include sleep apnea - Electrocardiogram: An ECG today showed NSR - Stress testing- see orders - ECG COMPLETE 9. Other chest pain - ICD9: 786.59, ICD10: R07.89 - NM CARDIAC PERF STRESS/EXERCISE 10. Wellness examination - ICD9: V70.0, ICD10: Z00.00 - Counseled on healthy diet and regular exercise - Discussed need for and benefit of weight loss. There is no height on file. - Colorectal cancer screening recommended - agrees to Colonoscopy - Risks/benefits of prostate cancer screening discussed. screening PSA ordered - Counseled on limiting alcohol intake to 2 drinks per day - Depression screening tool completed and reviewed with patient. Based on score and interview, patient is not at risk for depression and recommended no further intervention at this time. - Follow up for annual exam in one year Delma Brumfield APRN.CNP documented in this encounter [facility] Diagnosis Encounter for screening for malignant neoplasm of colon- Primary Special screening for malignant neoplasms, colon History of colon polyps Personal history of colonic polyps [facility] Diagnosis Neoplasm of unspecified behavior of bone, soft tissue, and skin- Primary Multiple benign nevi Benign neoplasm of skin, site unspecified Angioma of skin Hemangioma of skin and subcutaneous tissue Lentigines Other dyschromia Seborrheic keratoses Other seborrheic keratosis Screening exam for skin cancer Screening for malignant neoplasm of the skin Seborrheic keratosis Other seborrheic keratosis Actinic skin damage Other dermatitis due to solar radiation Inflamed seborrheic keratosis Skin pruritus Unspecified pruritic disorder [facility] Diagnosis Other chest pain [facility]* Diagnosis Personal history of colonic polyps- Primary History of colon polyps Personal history of colonic polyps [facility] Diagnosis Sleep apnea, unspecified type- Primary [facility] Diagnostic Procedure Only (Routine) - Authorized Specialty Diagnoses / Procedures Referred By Contjosias t Referred To Contact MOLECULAR [facility] FUNCTIONAL IMAGING Diagnoses Other chest pain Procedures NM CARDIAC PERF STRESS/EXERCISE MYOCARDIAL SPECT MULTIPLE STUDIES Delma Brumfield APRN.CNP [address] [place] [address] Molecular [facility] Functional [facility] [address] [place] [address] Referral ID Status Reason Start Date Expiration Date Visits Requested Visits Authorized [id number] Authorized Auto-Generat ed Referral 03/18/2023 04/16/2024 1 1 * Outpatient Procedure (Routine) - Closed Specialty Diagnoses / Procedures Referred By Contac t Referred To Contact [facility] Diagnoses Chest pressure Procedures ECG COMPLETE ECG ROUTINE ECG W/LEAST 12 LDS W/I&R Delma Brumfield APRN.ROOF PAINTER [address] [place] [address] [place] [address] Referral ID Status Reason Start Date Expiration Date V isits Requested Visits Authorized [id number] Closed Auto-Generate d Referral 03/18/2023 03/17/2024 1 1 * Diagnostic Procedure Only (Routine) - Authorized Specialty Diagnoses / Procedures Referred By Contac t Referred To Contact [facility] Diagnoses Snoring Procedures HOME SLEEP APNEA TEST (HSAT) SLEEP STD AIRFLOW HRT RATE&O2 SAT EFFORT UNATT Delma Brumfield APRN.ROOF PAINTER [address] [place] [address] [place] [address] Referral ID Status Reason Start Date Expiration Date Visits Requested Visits Authorized [id number] Authorized Auto-Generat ed Referral 03/18/2023 03/17/2024 1 1 * Transition of Care (Routine) - Ref Not Required Specialty Diagnoses / Procedures Referred By Contac t Referred To Contact Dermatology Diagnoses Abnormal skin growth Procedures CONSULT TO DERMATOLOGY Delma Brumfield APRN.ROOF PAINTER [address] [place] [address] Referral ID Status Reason Start Date Expiration Date Visits Requested Visits Authorized [id number] Ref Not Required PCP Requested Referral 03/18/2023 03/17/2024 1 1 * Consult, Test, Treat (Routine) - Pending Review Specialty Diagnoses / Procedures Referred By Contac t Referred To Contact General Surgery Diagnoses History of colon polyps Procedures CONSULT TO GENERAL SURGERY OFFICE/OUTPATIENT NEW HIGH MDM 60-74 MINUTES Delma Brumfield APRN.CNP [address] [place] [address] Referral ID Status Reason Start Date Expiration Date Visits Requested Visits Authorized [id number] Pending Review PCP Requested Referral 03/18/2023 03/17/2024 1 1 [facility] for referral (narrative)* Diagnostic Procedure Only (Routine) - Closed Specialty Diagnoses / Procedures Referred By Contac t Referred To Contact [facility] Diagnoses Other chest pain Procedures NM CARDIAC PERF STRESS/EXERCISE MYOCARDIAL SPECT MULTIPLE STUDIES Delma Brumfield APRN.CNP [address] [place] [address] Molecular [facility] Functional Imaging [address] [place] [address] Referral ID Status Reason Start Date Expiration Date V isits Requested Visits Authorized [id number] Closed Auto-Generate d Referral 03/18/2023 04/16/2024 1 1 [facility] for referral (narrative)* Outpatient Procedure (Routine) - Closed Specialty Diagnoses / Procedures Referred By Contac t Referred To Contact [facility] Diagnoses History of colon polyps Procedures COLONOSCOPY SCREENING COLONOSCOPY FLX DX W/COLLJ SPEC WHEN PFRMD Joceline Corbin PA-C [address] [place] [address] [facility] [address] [place] [address] Referral ID Status Reason Start Date Expiration Date V isits Requested Visits Authorized [id number] Closed Auto-Generate d Referral 05/06/2023 07/13/2023 1 1 [facility] for visit Narrative* Diagnostic Procedure Only (Routine) - Closed Specialty Diagnoses / Procedures Referred By Contac t Referred To Contact [facility] Diagnoses Other chest pain Procedures NM CARDIAC PERF STRESS/EXERCISE MYOCARDIAL SPECT MULTIPLE STUDIES Delma Brumfield, HERNANDEZ.ROOF PAINTER [address] [place] [address] Molecular [facility] Functional Imaging [address] [place] [address] Referral ID Status Reason Start Date Expiration Date V isits Requested Visits Authorized [id number] Closed Auto-Generate d Referral 03/18/2023 04/16/2024 1 1 [facility] for visit Narrative* Outpatient Procedure (Routine) - Closed Specialty Diagnoses / Procedures Referred By Chaparro leon Referred To Contact [facility] Diagnoses History of colon polyps Procedures COLONOSCOPY SCREENING COLONOSCOPY FLX DX W/COLLJ SPEC WHEN PFRMD Joceline Corbin PA-C [address] [place] [address] [facility] [address] [place] [address] Referral ID Status Reason Start Date Expiration Date V isits Requested Visits Authorized [id number] Closed Auto-Generate d Referral 05/06/2023 07/13/2023 1 1 [facility] Medications Administered Section Inactive Administered Medications - up to 3 most recent administrations Medication Order MAR Action Action Date Dose Rate Site diphenhydrAMINE 12.5-50 mg injection (BENADRYL) 12.5-50 mg, INTRAVENOUS, DIRECTED, Starting on Yamila 05/22/23 at 0930, Until Yamila 05/22/23 at 1329, DOSING DIRECTED BY PHYSICIAN FOR PROCEDURAL SEDATION ONLY, Intraprocedure Given 05/22/2023 9:19 AM EST 50 mg fentaNYL 50 mcg/mL 25-100 mcg injection (SUBLIMAZE) 25-100 mcg, INTRAVENOUS, DIRECTED, Starting on Yamila 05/22/23 at 0930, Until Yamila 05/22/23 at 1329, DOSING DIRECTED BY PHYSICIAN FOR PROCEDURAL SEDATION ONLY, Intraprocedure Given 05/22/2023 9:26 AM EST 50 mcg Reason for Referral Specialty Diagnoses / Procedures Referred By Contac t Referred To Contact Diagnoses Sleep apnea, unspecified type Procedures CONSULT TO SLEEP MEDICINE - ADULT OFFICE/OUTPATIENT [facility] 60-74 MINUTES Delma Brumfield, COOKER LOADER.ROOF PAINTER [address] [place] [address] Cheyanne Garner APRN.ROOF PAINTER [address] [place] [address] Referral ID Status Reason Start Date Expiration Date Visits Requested Visits Authorized [id number] Pending Review PCP Requested Referral 3 05/28/2024 1 1 Summary Purpose Family History No Family History Records FoundNo Family History Records Found Advance Directives No Advanced Directives Records FoundNo Advanced Directives Records Found Additional Source Comments Source Comments (unrecognize d section and content) In the event this informatio n is protected by the Federal Confidentiality of Alcohol and Drug Abuse Patient Records regulations: The Federal rules restrict any use of the information to criminally investigate or prosecute any alcohol or drug abuse patient.[facility] the event this information is protected by the Federal Confidentiality of Alcohol and Drug Abuse Patient Records regulations: The Federal rules restrict any use of the information to criminally investigate or prosecute any alcohol or drug abuse patient.[facility] Foundation[facility] the event this information is protected by the Federal Confidentiality of Alcohol and Drug Abuse Patient Records regulations: The Federal rules restrict any use of the information to criminally investigate or prosecute any alcohol or drug abuse patient.[facility] Foundation[facility] the event this information is protected by the Federal Confidentiality of Alcohol and Drug Abuse Patient Records regulations: The Federal rules restrict any use of the information to criminally investigate or prosecute any alcohol or drug abuse patient.[facility] Foundation[facility] the event this information is protected by the Federal Confidentiality of Alcohol and Drug Abuse Patient Records regulations: The Federal rules restrict any use of the information to criminally investigate or prosecute any alcohol or drug abuse patient.[facility] Foundation[facility] the event this information is protected by the Federal Confidentiality of Alcohol and Drug Abuse Patient Records regulations: The Federal rules restrict any use of the information to criminally investigate or prosecute any alcohol or drug abuse patient.[facility] Foundation[facility] the event this information is protected by the Federal Confidentiality of Alcohol and Drug Abuse Patient Records regulations: The Federal rules restrict any use of the information to criminally investigate or prosecute any alcohol or drug abuse patient.[facility] Foundation[facility] the event this information is protected by the Federal Confidentiality of Alcohol and Drug Abuse Patient Records regulations: The Federal rules restrict any use of the information to criminally investigate or prosecute any alcohol or drug abuse patient.[facility] Foundation[facility] the event this information is protected by the Federal Confidentiality of Alcohol and Drug Abuse Patient Records regulations: The Federal rules restrict any use of the information to criminally investigate or prosecute any alcohol or drug abuse patient.[facility] Foundation[facility] the event this information is protected by the Federal Confidentiality of Alcohol and Drug Abuse Patient Records regulations: The Federal rules restrict any use of the information to criminally investigate or prosecute any alcohol or drug abuse patient.[facility] Foundation[facility] the event this information is protected by the Federal Confidentiality of Alcohol and Drug Abuse Patient Records regulations: The Federal rules restrict any use of the information to criminally investigate or prosecute any alcohol or drug abuse patient.[facility] Reason for Visit (unrecogniz ed section and content) Reason Comments Consult Colonoscopy consult. Specialty Diagnoses / Procedures Referred By Chaparro leon Referred To Contact General Surgery Diagnoses History of colon polyps Procedures CONSULT TO GENERAL SURGERY OFFICE/OUTPATIENT [facility] 60-74 MINUTES Delma Brumfield APRN.ROOF PAINTER [address] [place] [address] Referral ID Status Reason Start Date Expiration Date Visits Requested Visits Authorized [id number] Pending Review PCP Requested Referral 03/18/2023 03/17/2024 1 1 Reason Comments Mole Skin growths Reason Comments Patient Update Medical history Reason Comments Radiology NM Specialty Diagnoses / Procedures Referred By Chaparro leon Referred To Contact MOLECULAR & FUNCTIONAL IMAGING Diagnoses Other chest pain Procedures NM CARDIAC PERF STRESS/EXERCISE MYOCARDIAL SPECT MULTIPLE STUDIES Delma Brumfield APRN.ROOF PAINTER [address] [place] [address] Molecular & Functional Imaging [address] [place] [address] Referral ID Status Reason Start Date Expiration Date V isits Requested Visits Authorized [id number] Closed Auto-Generate d Referral 03/18/2023 04/16/2024 1 1 Reason Comments PSG Check In Reason Comments Results Care Teams (unrecognized sec tion and content) Program Review Director Relationship Specialty Start Date End Date Delma Brumfield APRN.ROOF PAINTER [address] [place] [phone] PCP - General Family Medicine 03/18/23 Program Review Director Relationship Specialty Start Date End Date Delma Brumfield APRN.ROOF PAINTER [address] [place] [address] [phone] PCP - General Family Medicine 03/18/23 Program Review Director Relationship Specialty Start Date End Date Delma Brumfield APRN.ROOF PAINTER [address] [place] [address] [phone] PCP - General Family Medicine 03/18/23 Program Review Director Relationship Specialty Start Date End Date Delma Brumfield APRN.ROOF PAINTER [address] [place] [address] [phone] PCP - General Family Medicine 03/18/23 Program Review Director Relationship Specialty Start Date End Date Delma Brumfield APRN.ROOF PAINTER [address] [place] [address] [phone] PCP - General Family Medicine 03/18/23 Program Review Director Relationship Specialty Start Date End Date Delma Brumfield APRN.ROOF PAINTER [address] [place] [address] [phone] PCP - General Family Medicine 03/18/23 Program Review Director Relationship Specialty Start Date End Date Delma Brumfield APRN.ROOF PAINTER [address] [place] [address] [phone] PCP - General Family Medicine 03/18/23 Program Review Director Relationship Specialty Start Date End Date Delma Brumfield APRN.ROOF PAINTER [address] [place] [address] [phone] PCP - General Family Medicine 03/18/23 Program Review Director Relationship Specialty Start Date End Date Delma Brumfield APRN.ROOF PAINTER [address], [place] [phone] PCP - General Family Medicine 03/18/23 Program Review Director Relationship Specialty Start Date End Date Delma Brumfield APRN.ROOF PAINTER [address], [place] [phone] PCP - General Family Medicine 03/18/23 (unrecognized sect ion and content) No Status Records FoundNo Status Records Found INFORMATION SOURCE (unrecogn ized section and content) DATE CREATED AUTHOR AUTHOR'S ORGANIZ ATION 07/05/2023 [facility] FOR RECORDS PERTAINING TO PATIENTS WHO ARE OR HAVE BEEN ENROLLED IN A CHEMICAL DEPENDENCY/SUBSTANCEABUSE PROGRAM, SOME INFORMATION MAY BE OMITTED. This clinical summary was aggregated from multiple sources. Caution should be exercised in using it in the provision of clinical care. This summary normalizes information from multiple sources, and as a consequence, information in this document may materially change the coding, format and clinical context of patient data. In addition, data may be omitted in some cases. CLINICAL DECISIONS SHOULD BE BASED ON THE PRIMARY CLINICAL RECORDS. [employer] [facility] provides no warranty or guarantee of the accuracy or completeness of information in this document.
== END | disposition home or self-care (01) ==
LOC: SL 19:51
DX: G47.33 Obstructive sleep apnea (adult) (pediatric) (principal); G47.39 Other sleep apnea
CPT/HCPCS: 95811

== ENCOUNTER → 2023-08-18 | Outpatient (CLI) | payer MEDICARE, SELFPAY ==
--- OUTSIDE RECORDS SUMMARY | 2023-08-18 11:05 | XMS RPT_ITS | CCD ---
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 Polysomnography and Related Procedures, or if the sleep study is indicated for other reasons. Indications for study: DAI previously diagnosed: Evaluate response to PAP therapy Sleep study to be performed: PAP titration study Special instructions: Start titration at PAP setting of 5cmH2O Target REM/supine sleep Lizet Fallon - Sleep Medicine Staff Note: I have read the above protocol, edited as needed, and agree to the plan. Morgan Torres III, PhD 1:56 PM, 05/23/2023 May 20, 2023 An order has been received for PAP titration study from Delma North APRN.arpita VARGHESE. [facility] Staff. Visit prep complete. Comments :No The sleep study is scheduled for 05/25. Insurance: Payor: [facility] MEDICARE / Plan: [employer] A[employer] MEDICARE HMO / Product Type: HMO / Payer/Plan Subscr Sex Relation Sub. Ins. ID Effective Group Num 1. [facility] CASSIE* LEXI ADHIKARI 1955 Male Self [id number] 07/[birth year] [address] [address] Jhon Pereira documented in this encounter [facility] 05-23-2023 Note HNO ID: [id number] Author: Morgan Torres III, PhD Service: ? Author Type: Physician Type: Progress Notes Filed: 05/26/2023 5:04 AM Note Text: May 23, 2023 Standing PSG Orders signed in the last 90 days None Future PSG Orders signed in the last 90 days Ordered Auth. provider PAP TITRATION PSG (CPAP, BIPAP, ASV) [[id number]] 04/08/23 Delma Brumfield APRN.PATTERN TECHNICIAN Assoc. diagnoses: DAI (obstructive sleep apnea) [G47.33] Q: Indications: A: Obstructive sleep apnea Q: STOP-BANG conditions - Select All That Apply: A: GENDER = male A2: AGE > 50 A3: SNORING that is loud or disruptive A4: TIREDNESS, fatigue or sleepiness during the day Q: Special Needs (e.g.behavior, non-ambulatory, >450 lbs)?: A: No Q: Prior PAP (CPAP or Bilevel PAP) Use?: A: No Q: Sleep History: A: Sleep apnea A2: Daytime sleepiness Q: Current use of supplemental oxygen during sleep period?: A: No Q: Add supplemental oxygen if needed per sleep lab policy?: A: Yes All Prior Sleep Studies (past 365 days) Some values may be hidden. Unless noted otherwise, only the newest values recorded on each date are displayed. Sleep Studies HOME SLEEP APNEA TEST (HSAT) Date: 03/31/23 PAP TITRATION PSG (CPAP, BIPAP, ASV) Future Expected: Expires: 05/07/24 BMI Readings from Last 2 Encounters: 05/22/23 : 23.33 kg/m? 03/25/23 : 23.32 kg/m? PAST MEDICAL HISTORY Diagnosis Date Glaucoma Sleep apnea The medical record was reviewed to determine if the proposed sleep study conforms to the AASM Practice Parameters for the Indications for Polysomnography and Related Procedures, or if the sleep study is indicated for other reasons. Indications for study: DAI previously diagnosed: Evaluate response to PAP therapy Sleep study to be performed: PAP titration study Special instructions: Start titration at PAP setting of 5cmH2O Target REM/supine sleep Lizet Perez - Sleep Medicine Staff Note: I have read the above protocol, edited as needed, and agree to the plan. Morgan Torres III, PhD 1:56 PM, 05/23/2023 [facility] 05-22-2023 Nurse Note pt arrived to phase 2 resting in left lateral position. abd soft, non distended. SR up x 2, call light in reach. Aaliyah Christopher RN documented in this encounter [facility] 05-22-2023 History and physical note Images from the original note were not included. HISTORY AND PHYSICAL Lexi Adhikari 1955 REFERRING [...] undergone prior endoscopy. Last colonoscopy 2012 at [facility], records requested. Patient reports history of colon polyps. Patient's medical history is significant for glaucoma. Of note, patient had ED visit at [facility] 11/24/22 for chest pain, records reviewed. Cardiac and PE workup was negative. Patient has had follow-up with primary care. Had stress testing ordered which has not been completed. PAST MEDICAL HISTORY PAST MEDICAL HISTORY Diagnosis Date Glaucoma PAST SURGICAL HISTORY PAST SURGICAL HISTORY Procedure Laterality Date APPENDECTOMY 1973 ARTHROTOMY W/MENISCUS REPAIR KNEE Left 2006 COLONOSCOPY 05/24/2013 adenoma, repeat in 5 years, performed in [place], [place] COLONOSCOPY 07/25/2008 adenoma, repeat in 3 years, performed in [place], [place] CURRENT MEDICATIONS Current Outpatient Medications Medication Sig tafluprost, PF, [...] entered by the nurse and reviewed by fl Nursing Notes: Isadora Sanches RN 03/25/2023 8:30 [...] letter to requesting physician via US mail. Lex Corbin PA-C UPDATED HISTORY AND PHYSICAL EXAMINATION [...] TIME: 9:16 AM documented in this encounter [facility] 05-20-2023 Note HNO ID: [id number] Author: Jhon Pereira Service: ? Author Type: ? Type: Progress Notes Filed: 05/26/2023 5:04 AM Note Text: May 20, 2023 An order has been received for PAP titration study from Delma North APRN.HALIMA, arpita Decker. [facility] Staff. Visit prep complete. Comments :No The sleep study is scheduled for 05/25. Insurance: Payor: [facility] MEDICARE / Plan: [facility] MEDICARE HMO / Product Type: HMO / Payer/Plan Subscr Sex Relation Sub. Ins. ID Effective Group Num 1. [facility] CASSIE* LEXI ADHIKARI 1955 Male Self [id number] 07[birth year] [address] [address] Jhon Pereira [facility] 04-21-2023 Note HNO ID: [id number] Author: Parul Whitley RT(Halie) Service: Nuclear Medicine Author Type: Technologist Type: [...] Discontinued PROCEDURE TYPE: NM Stress: 8.4 mCi Au00b-Rvxewvl was administered IV for Rest Imaging at 07:39 by Parul Whitley. 26.4 mCi My14j-Npqiqem was administered IV for Stress Imaging at 09:05 by Parul Whitley. ADMINISTRATION TIME: PATIENT DISCHARGED TO: Ambulatory patient, left [place] department area. A Diagnostic radioactive procedure has taken place, with no further precautions necessary other than routine body substance precautions. More information regarding radiation safety can be found using this link: [email or web address] 0Protection %[email or web address]-%20Diagnostic%20Nuclear%20Me dicine%20Procedures.pdf SIGNATURE: RT Eliza(R) PATIENT NAME: Lexi Adhikari DATE: April 21, 2023 TIME: 10:40 AM PAGER/CONTACT #: [facility] 04-21-2023 History of Presen t illness Narrative [...] Discontinued PROCEDURE TYPE: NM Stress: 8.4 mCi Cl54m-Czbkkga was administered IV for Rest Imaging at 07:39 by Parul Whitley. 26.4 mCi Uz79l-Dcqfsrh was administered IV for Stress Imaging at 09:05 by Parul Whitley. ADMINISTRATION TIME: PATIENT DISCHARGED TO: Ambulatory patient, left [place] department area. A Diagnostic radioactive procedure has taken place, with no further precautions necessary other than routine body substance precautions. More information regarding radiation safety can be found using this link: [email or web address] [email or web address]-%[email or web address]%20N uclear%20Medicine%20Procedures.p df SIGNATURE: SHANE Kay) PATIENT NAME: Lexi Adhikari DATE: April 21, 2023 TIME: 10:40 AM PAGER/CONTACT #: documented in this encounter [facility] 04-02-2023 Note HNO ID: [id number] Author: Vera Bolaños Service: ? Author Type: ? Type: Progress Notes Filed: 04/02/2023 4:55 PM Note Text: Sleep Study Check-In Documentation Date: April 02, 2023 Name: Lexi Adhikari Comments: HST was returned in working order with all sleep questionnaires Vera Bolaños [facility] 04-01-2023 Note HNO ID: [id number] Author: Dulce Kincaid PA-C Service: ? Author Type: Physician Pump Servicer Supervisor Type: Progress Notes Filed: 04/03/2023 7:23 AM [...] CARE was c (more content not included)... [facility] 04-01-2023 Instructions Dulce Kincaid PA-C - 04/01/2023 [...] a healthy diet and vitamin supplements. The [employer] [employer] recommend 1000 international unit(s) [...] are exposed to the BRENDON-U Blue Light Loop Tacker, a reaction occurs which destroys the [place] [...] swelling and redness, you may also take oobv-xkk-shxrcbp oral medications: Ibuprofen 200 mg, Claritin (loratidine) 10 mg, or Benadryl (diphenhydramine) 25-50 mg nightly (may cause drowsiness). In rare cases, you may need a prescription for an oral anti-inflammatory medication. If you have any questions or concerns during the healing process, please call our office Department of Dermatology [address] [place] [address] [address] [place] [phone] SKIN CARE AFTER CRYOSURGERY Post - Operative [...] within 3 to 4 weeks. Please call [phone] to speak to one of the dermatology nurses if you have any questions. Department of Dermatology [address] [place] [address] [address] [place] [address] CARE FOR YOUR SHAVE BIOPSY SITE Please [...] are healing, please send your provider a [employer] message or call [phone] and ask for a dermatology nurse. documented in this encounter [facility] 04-01-2023 History of Presen t illness Narrative [...] Kincaid PA-C, MPAS documented in this encounter [facility] 03-28-2023 Note HNO ID: [id number] Author: Aaliyah Lopez DO Service: ? Author Type: Physician Type: Progress Notes Filed: 04/02/2023 4:55 PM Note Text: March 28, 2023 Standing PSG Orders signed in the last 90 days None Future PSG Orders signed in the last 90 days Ordered Auth. provider HOME SLEEP APNEA TEST (HSAT) [[id number]] 03/18/23 Delma Brumfield APRN.PATTERN TECHNICIAN Assoc. diagnoses: Snoring [R06.83] Q: Indications: A: [...] needed, and agree to the plan. Aaliyah Lopez DO 2:10 PM, 03/28/2023 [facility] 03-27-2023 Note HNO ID: [id number] Author: Vera Bolaños Service: ? Author Type: ? Type: Progress Notes Filed: 04/02/2023 4:55 PM Note Text: Nomad# [id number] , Date shipped out: 03/28/23 SENT FEDEX DELIVERY - FEDEX RETURN Tracking mailout: [phone] [id number] Tracking return: [phone] [facility] 03-25-2023 Note HNO ID: [id number] Author: Lex Corbin PA-C Service: ? Author Type: Physician Pump Servicer Supervisor Type: Progress Notes Filed: 03/30/2023 10:43 PM [...] The patient notes no upper GI complaints. Leix has undergone prior endoscopy. Last colonoscopy 2012 at [facility], records requested. Patient reports history of colon polyps. Patient's medical history is significant for glaucoma. Of note, patient had ED visit at [facility] 11/24/22 for chest pain, records reviewed. Cardiac and PE workup was negative. Patient has had follow-up with primary care. Had stress testing ordered which has not been completed. PAST MEDICAL HISTORY Diagnosis Date Glaucoma PAST SURGICAL HISTORY Procedure Laterality Date APPENDECTOMY 1973 ARTHROTOMY W/MENISCUS REPAIR KNEE Left 2005 COLONOSCOPY 05/24/2013 adenoma, repeat in 5 years, performed in [place], [place] COLONOSCOPY 07/25/2008 adenoma, repeat in 3 years, performed in [place], [place] Current Outpatient Medications Medication Sig tafluprost, [...] entered by the nurse and reviewed by me Nursing Notes: Isadora Sanches RN 03/25/2023 8:30 [...] %. Body mass (more content not included)... [facility] 03-25-2023 Nurse Note REVIEW OF SYSTEMS: General: [...] Isadora Sanches RN documented in this encounter [facility] 03-25-2023 History of Presen t illness Narrative HISTORY AND PHYSICAL Lexi Adhikari 1955 REFERRING [...] undergone prior endoscopy. Last colonoscopy 2012 at [facility], records requested. Patient reports history of colon polyps. Patient's medical history is significant for glaucoma. Of note, patient had ED visit at [facility] 11/24/22 for chest pain, records reviewed. Cardiac and PE workup was negative. Patient has had follow-up with primary care. Had stress testing ordered which has not been completed. PAST MEDICAL HISTORY Diagnosis Date Glaucoma PAST SURGICAL HISTORY Procedure Laterality Date APPENDECTOMY 1972 ARTHROTOMY W/MENISCUS REPAIR KNEE Left 2005 COLONOSCOPY 05/24/2013 adenoma, repeat in 5 years, performed in [place], [place] COLONOSCOPY 07/25/2008 adenoma, repeat in 3 years, performed in [place], [place] Current Outpatient Medications Medication Sig tafluprost, [...] entered by the nurse and reviewed by fl Nursing Notes: Isadora Sanches RN 03/25/2023 8:30 [...] letter to requesting physician via US mail. Lex Corbin PA-C documented in this encounter [facility] 03-24-2023 Miscellaneous Notes Patient's last colonoscopy was in 2012 at the [facility]. He is also going to bring documentation of that to his appointment. Giovana Lane March 24, 2023 1:43 PM Called and left message for patient to call office back, looking for information on last colonoscopy and where it was completed? Trinidad Rodrigez LPN documented in this encounter [facility] 03-19-2023 Note HNO ID: [id number] Author: Yumiko Gaston Service: ? Author Type: ? Type: Progress Notes Filed: 04/02/2023 4:55 PM Note Text: March 19, 2023 An order has been received for Home Sleep Apnea Test (HSAT) from Delma North APRN.HALIMA , arpita Decker. [facility] Staff. Visit prep complete. Comments :No The sleep study is scheduled for 04/12. Insurance: Payor: [facility] MED[facility] / Plan: [facility] MEDIC[facility] HMO / Product Type: HMO / Payer/Plan Subscr Sex Relation Sub. Ins. ID Effective Group Num 1. [facility] CASSIE* LEXI ADHIKARI 1955 Male Self [id number] [birth year] [address] [address] Yumiko Gaston [facility] 03-18-2023 Note HNO ID: [id number] Author: Delma Brumfield APRN.CNP Service: ? Author Type: Nurse Practitioner Type: Progress Notes Filed: 03/18/2023 8:38 AM Note Text: Chief Complaint Patient presents with: [facility] HPI Lexi Adhikari is a 68 year old male who presents here today for Above Complaints.. Patient presents to [facility]. 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 [facility] 03-18-2023 History of Presen t illness Narrative Chief Complaint Patient presents with: [facility] HPI Lexi Adhikari is a 68 year old male who presents here today for Above Complaints.. Patient presents to [facility]. 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 [...] Date APPENDECTOMY 1972 ARTHROTOMY W/MENISCUS REPAIR KNEE 2006 Family History [...] Delma Brumfield APRN.CNP documented in this encounter [facility] Diagnosis Encounter for screening for malignant neoplasm of colon- Primary Special screening for malignant neoplasms, colon History of colon polyps Personal history of colonic polyps [facility] Diagnosis Neoplasm of unspecified behavior of [...] Unspecified pruritic disorder [facility] Diagnosis Other chest pain [facility] Diagnosis Personal history of colonic polyps- Primary History of colon polyps Personal history of colonic polyps [facility] Diagnosis Sleep apnea, unspecified type- Primary [facility] Diagnostic Procedure Only (Routine) - Authorized Specialty Diagnoses / Procedures Referred By Chaparro leon Referred To Contact MOLECULAR & FUNCTIONAL IMAGING Diagnoses Other chest pain Procedures NM CARDIAC PERF STRESS/EXERCISE MYOCARDIAL SPECT MULTIPLE STUDIES Delma Brumfield APRN.CNP [address] [place] [address] Molecular & Functional Imaging [address] [place] [address] Referral ID Status Reason Start Date Expiration Date Visits Requested Visits Authorized [id number] Authorized Auto-Generat ed Referral 03/18/2023 04/16/2024 1 1 * Outpatient Procedure (Routine) - Closed Specialty Diagnoses / Procedures Referred By Contac t Referred To Contact [facility] Diagnoses Chest pressure Procedures ECG COMPLETE ECG ROUTINE ECG W/LEAST 12 LDS W/I&R Delma Brumfield APRN.CNP [facility] [place] [address] [address] Referral ID Status Reason Start Date Expiration Date V isits Requested Visits Authorized [id number] Closed Auto-Generate d Referral 03/18/2023 03/17/2024 1 1 * Diagnostic Procedure Only (Routine) - Authorized Specialty Diagnoses / Procedures Referred By Contac t Referred To Contact [facility] [place] Diagnoses Snoring Procedures HOME SLEEP APNEA TEST (HSAT) SLEEP STD AIRFLOW HRT RATE&O2 SAT EFFORT UNATT Delma Brumfield APRN.CNP [address] [place], [place] [address] [place] [address] Referral ID Status Reason Start Date Expiration Date Visits Requested Visits Authorized [id number] Authorized Auto-Generat ed Referral 03/18/2023 03/17/2024 1 1 * Transition of Care (Routine) - Ref Not Required Specialty Diagnoses / Procedures Referred By Contac t Referred To Contact Dermatology Diagnoses Abnormal skin growth Procedures CONSULT TO DERMATOLOGY Delma Brumfield APRN.CNP [address] [place] [address] Referral ID Status Reason Start Date Expiration Date Visits Requested Visits Authorized [id number] Ref Not Required PCP Requested Referral 03/18/2023 03/17/2024 1 1 * Consult, Test, Treat (Routine) - Pending Review Specialty Diagnoses / Procedures Referred By Contac t Referred To Contact General Surgery Diagnoses History of colon polyps Procedures CONSULT TO GENERAL SURGERY OFFICE/OUTPATIENT NEW HIGH MDM 60-74 MINUTES Delma Brumfield APRN.HALIMA [address] [place] [address] Referral ID Status Reason Start Date Expiration Date Visits Requested Visits Authorized [id number] Pending Review PCP Requested Referral 03/18/2023 03/17/2024 1 1 [facility] for referral (narrative)* Diagnostic Procedure Only (Routine) - Closed Specialty Diagnoses / Procedures Referred By Chaparro t Referred To Contact MOLECULAR & FUNCTIONAL IMAGING Diagnoses Other chest pain Procedures NM CARDIAC PERF STRESS/EXERCISE MYOCARDIAL SPECT MULTIPLE STUDIES Delma Brumfield APRN.CNP [address] [place] [address] [facility] [address] [place] [address] Referral ID Status Reason Start Date Expiration Date V isits Requested Visits Authorized [id number] Closed Auto-Generate d Referral 03/18/2023 04/16/2024 1 1 [facility] for referral (narrative)* Outpatient Procedure (Routine) - Closed Specialty Diagnoses / Procedures Referred By Chaparro leon Referred To Contact [facility] Diagnoses History of colon polyps Procedures COLONOSCOPY SCREENING COLONOSCOPY FLX DX W/COLLJ SPEC WHEN PFRMD Lex Corbin PA-C [address] [place] [address] [facility] [address] [place] [address] Referral ID Status Reason Start Date Expiration Date V isits Requested Visits Authorized [id number] Closed Auto-Generate d Referral 05/06/2023 07/13/2023 1 1 [facility] for visit Narrative* Diagnostic Procedure Only (Routine) - Closed Specialty Diagnoses / Procedures Referred By Chaparro t Referred To Contact MOLECULAR & FUNCTIONAL IMAGING Diagnoses Other chest pain Procedures NM CARDIAC PERF STRESS/EXERCISE MYOCARDIAL SPECT MULTIPLE STUDIES Delma Brumfield APRN.PATTERN TECHNICIAN [address] [place] [address] Molecular & Functional Imaging [address] [place] [address] Referral ID Status Reason Start Date Expiration Date V isits Requested Visits Authorized [id number] Closed Auto-Generate d Referral 03/18/2023 04/16/2024 1 1 [facility] for visit Narrative* Outpatient Procedure (Routine) - Closed Specialty Diagnoses / Procedures Referred By Chaparro leon Referred To Contact [facility] Diagnoses History of colon polyps Procedures COLONOSCOPY SCREENING COLONOSCOPY FLX DX W/COLLJ SPEC WHEN PFRMD Lex Corbin PA-C [address] [place] [address] [facility] [address] [place] [address] Referral ID Status Reason Start Date Expiration Date V isits Requested Visits Authorized [id number] Closed Auto-Generate d Referral 05/06/2023 07/13/2023 1 1 [facility] Medications Administered Section Inactive Administered Medications - [...] CONSULT TO SLEEP MEDICINE - ADULT OFFICE/OUTPATIENT NEW HIGH MDM 60-74 MINUTES Delma Brumfield APRN.PATTERN TECHNICIAN [address] [place] [address] Dima Garner APRN.PATTERN TECHNICIAN [address] [place] [address] Referral ID Status Reason Start Date Expiration Date Visits Requested Visits Authorized [id number] Pending Review PCP Requested Referral 3 05/28/2024 1 1 Summary Purpose Family History No Family History Records FoundNo Family History Records FoundNo Family History Records Found Advance Directives No Advanced Directives Records FoundNo Advanced Directives Records FoundNo Advanced Directives Records Found Additional Source Comments Source Comments (unrecognize d section and content) In the event this informatio n is protected by the Federal Confidentiality of Alcohol and Drug Abuse Patient Records regulations: The Federal rules restrict any use of the information to criminally investigate or prosecute any alcohol or drug abuse patient.[facility] the event this information is protected by the Federal Confidentiality of Alcohol and Drug Abuse Patient Records regulations: The Federal rules restrict any use of the information to criminally investigate or prosecute any alcohol or drug abuse patient.[facility] the event this information is protected by the Federal Confidentiality of Alcohol and Drug Abuse Patient Records regulations: The Federal rules restrict any use of the information to criminally investigate or prosecute any alcohol or drug abuse patient.[facility] the event this information is protected by the Federal Confidentiality of Alcohol and Drug Abuse Patient Records regulations: The Federal rules restrict any use of the information to criminally investigate or prosecute any alcohol or drug abuse patient.[facility] the event this information is protected by the Federal Confidentiality of Alcohol and Drug Abuse Patient Records regulations: The Federal rules restrict any use of the information to criminally investigate or prosecute any alcohol or drug abuse patient.[facility] CenterIn the event this information is protected by the Federal Confidentiality of Alcohol and Drug Abuse Patient Records regulations: The Federal rules restrict any use of the information to criminally investigate or prosecute any alcohol or drug abuse patient.[facility] CenterIn the event this information is protected by the Federal Confidentiality of Alcohol and Drug Abuse Patient Records regulations: The Federal rules restrict any use of the information to criminally investigate or prosecute any alcohol or drug abuse patient.[facility] CenterIn the event this information is protected by the Federal Confidentiality of Alcohol and Drug Abuse Patient Records regulations: The Federal rules restrict any use of the information to criminally investigate or prosecute any alcohol or drug abuse patient.[facility] CenterIn the event this information is protected by the Federal Confidentiality of Alcohol and Drug Abuse Patient Records regulations: The Federal rules restrict any use of the information to criminally investigate or prosecute any alcohol or drug abuse patient.[facility] CenterIn the event this information is protected by the Federal Confidentiality of Alcohol and Drug Abuse Patient Records regulations: The Federal rules restrict any use of the information to criminally investigate or prosecute any alcohol or drug abuse patient.[facility] CenterIn the event this information is protected by the Federal Confidentiality of Alcohol and Drug Abuse Patient Records regulations: The Federal rules restrict any use of the information to criminally investigate or prosecute any alcohol or drug abuse patient.[facility] Reason for Visit (unrecogniz ed section and content) Reason Comments Consult Colonoscopy consult. Specialty Diagnoses / Procedures Referred By Chaparro t Referred To Contact General Surgery Diagnoses History of colon polyps Procedures CONSULT TO GENERAL SURGERY OFFICE/OUTPATIENT [facility] 60-74 MINUTES Delma Brumfield APRN.CNP [address] [place] [id number] Referral ID Status Reason Start Date Expiration Date Visits Requested Visits Authorized [id number] Pending Review PCP Requested Referral 03/18/2023 03/17/2024 1 1 Reason Comments Mole Skin growths Reason Comments Patient Update Medical history Reason Comments Radiology NM Specialty Diagnoses / Procedures Referred By Chaparro leon Referred To Contact MOLECULAR & FUNCTIONAL IMAGING Diagnoses Other chest pain Procedures NM CARDIAC PERF STRESS/EXERCISE MYOCARDIAL SPECT MULTIPLE STUDIES Delma Brumfield APRN.CNP [address] [place] [id number] Molecular & Functional Imaging [address] [place] [address] Referral ID Status Reason Start Date Expiration Date V isits Requested Visits Authorized [id number] Closed Auto-Generate d Referral 03/18/2023 04/16/2024 1 1 Reason Comments PSG Check In Reason Comments Results Care Teams (unrecognized sec tion and content) [employer] Relationship Specialty Start Date End Date Delma Brumfield APRN.CNP [address] [place], [place] [phone] PCP - General Family Medicine 03/18/23 [employer] Referee Relationship Specialty Start Date End Date Delma Brumfield APRN.CNP [address] [place] [phone] PCP - General Family Medicine 03/18/23 [employer] Referee Relationship Specialty Start Date End Date Delma Brumfield APRN.PATTERN TECHNICIAN [address] [place] [phone] PCP - General Family Medicine 03/18/23 [employer] Referee Relationship Specialty Start Date End Date Delma Brumfield APRN.PATTERN TECHNICIAN [address] [place] [phone] PCP - General Family Medicine 03/18/23 [employer] Referee Relationship Specialty Start Date End Date Delma Brumfield APRN.PATTERN TECHNICIAN [address] [place] [phone] PCP - General Family Medicine 03/18/23 [employer] Re[employer]ree Relationship Specialty Start Date End Date Delma Brumfield APRN.PATTERN TECHNICIAN [address] [place] [phone] PCP - General Family Medicine 03/18/23 [employer] Referee Relationship Specialty Start Date End Date Delma Brumfield APRN.PATTERN TECHNICIAN [address] [place] [phone] PCP - General Family Medicine 03/18/23 [employer] Re[employer]ree Relationship Specialty Start Date End Date Delma Brumfield APRN.PATTERN TECHNICIAN [address] [place] [phone] PCP - General Family Medicine 03/18/23 [employer] Referee Relationship Specialty Start Date End Date Delma Brumfield APRN.PATTERN TECHNICIAN [address] [place] [phone] PCP - General Family Medicine 03/18/23 [employer] Re[employer]ree Relationship Specialty Start Date End Date Delma Brumfield APRN.PATTERN TECHNICIAN [address] [place] [address] PCP - General Family Medicine 03/18/23 (unrecognized sect ion and content) No Status Records FoundNo Status Records FoundNo Status Records Found INFORMATION SOURCE (unrecogn ized section and content) DATE CREATED AUTHOR AUTHOR'S ORGANIZ ATION 08/02/2023 [facility] DATE CREATED AUTHOR AUTHOR'S ORGANIZ ATION 08/10/2023 [facility] FOR RECORDS PERTAINING TO PATIENTS WHO ARE [...] BE BASED ON THE PRIMARY CLINICAL RECORDS. [employer] provides no warranty or guarantee of the accuracy or completeness of information in this document.
== END | disposition home or self-care (01) ==
LOC: SL 10:39
DX: Z00.00 Encounter for general adult medical examination without abnormal findings (principal)

== ENCOUNTER → 2023-10-24 | Outpatient (CLI) | payer MEDICARE, SELFPAY | END | disposition home or self-care (01) | LOC: SL 20:02 | PROVIDERS: PCP Nurse Practitioner Family | DX: G47.33 Obstructive sleep apnea (adult) (pediatric) (principal); G47.31 Primary central sleep apnea | CPT/HCPCS: 95811 ==

== ENCOUNTER → 2024-01-06 | Outpatient (CLI) | payer MEDICARE, SELFPAY | END | disposition home or self-care (01) | LOC: SL 20:19 | PROVIDERS: PCP Nurse Practitioner Family | DX: G47.33 Obstructive sleep apnea (adult) (pediatric) (principal); G47.39 Other sleep apnea | CPT/HCPCS: 95811 ==